=== PATIENT | male | born 1995 | race African-American/Black ===

== ENCOUNTER 2018-10-14 12:35 | Inpatient (IN) | payer OTHER ==
--- NOTE | 2018-10-14 13:10 | ED ---
Psychiatric Complaint - HPI Summary HPI Summary: Pt is a 23 y/o male who presents to the ED c/o SI. He states he was hospitalized in June 2018 for a suicide attempt made by cutting his wrists. Pt was then hospitalized again 10/01/18 in [place] for a manic episode. He was diagnosed with bipolar disorder and was prescribed 500 mg BID Depakote and 15 mg BID Abilify. Pt felt that the doctors were incorrect and he didnt have bipolar disorder, so he didnt take his medications. After speaking with his therapist, he came to terms with his diagnosis and began taking his medications again. Pts therapist warned him of the side effects. At first he had body aches and fatigue, then he went into the worst depression of his life. He now c/ o very intrusive SI. Pt denies any HI. He notes marijuana use for PTSD, but denies any alcohol use. He has a psychiatry appointment in 3 days, but he feels unsafe. Pt is accompanied by his mother. - History Of Current Complaint Chief Complaint: EDMentalHealth Time Seen by Provider: 10/14/18 12:54 Hx Obtained From: Patient, Family/Commissary Assistant - Mother Onset/Duration: Gradual Onset, Lasting Weeks - 2, Still Present Timing: Constant Character: Depressed Aggravating Factor(s): Other - Depakote, Abilify Alleviating Factor(s): Nothing Associated Signs And Symptoms: Positive: Negative Related History: Positive For: Prior Psychiatric Issues - Bipolar disorder Has Suicidal: Reports: Thoughts, Has Prior Attempt(s) Has Homicidal: Denies: Thoughts - Allergies/Home Medications Allergies/Adverse Reactions: Allergies Allergy/AdvReac Type Severity Reaction Status Date / Time No Known Allergies Allergy Verified 10/14/18 12:46 Home Medications: Home Medications Abilify 15 mg PO DAILY 10/14/18 [History Confirmed 10/14/18] Depakote 500 mg PO BID 10/14/18 [History Confirmed 10/14/18] clonazePAM TAB(*) [KlonoPIN TAB(*)] 0.5 mg PO BID PRN 10/14/18 [History Confirmed 10/14/18] PMH/Surg Hx/FS Hx/Imm Hx Endocrine/Hematology History: Denies: Hx Diabetes Cardiovascular History: Denies: Hx Hypertension Psychiatric History: Reports: Hx Post Traumatic Stress Disorder, Hx Bipolar Disorder, Hx Suicide Attempt Infectious Disease History: No Infectious Disease History: Denies: Traveled Outside the [place] in Last 30 Days - Family History Known Family History: Positive: Other - anxiety Negative: Diabetes - Social History Alcohol Use: None Hx Substance Use: Yes Substance Use Type: Reports: Marijuana Hx Tobacco Use: No Smoking Status (MU): Never Smoked Tobacco Review of Systems Positive: Fatigue, Other - body aches. Negative: Fever Positive: Depressed, Other - SI, NEGATIVE: HI All Other Systems Reviewed And Are Negative: Yes Physical Exam - Summary Physical Exam Summary: Appearance: Well appearing, no pain distress Skin: warm, dry, reflects adequate perfusion, old scars on left volar wrist Head/face: normal Eyes: EOMI, ABBY ENT: mucous membranes moist Neck: supple, non-tender Respiratory: CTA, breath sounds present Cardiovascular: RRR, pulses symmetrical Abdomen: non-tender, soft Bowel Sounds: present Musculoskeletal: normal, strength/ROM intact Neuro: normal, sensory motor intact, A&Ox3 Psych: normal affect, SI Triage Information Reviewed: Yes Vital Signs On Initial Exam: Initial Vitals Temp Pulse Resp BP Pulse Ox 98.4 F 101 16 138/90 99 10/14/18 12:41 10/14/18 12:41 10/14/18 12:41 10/14/18 12:41 10/14/18 12:41 Vital Signs Reviewed: Yes Diagnostics - Vital Signs Vital Signs Temp Pulse Resp BP Pulse Ox 10/14/18 12:41 98.4 F 101 16 138/90 99 - Laboratory Result Diagrams: 10/14/18 12:25 10/14/18 12:25 Lab Statement: Any lab studies that have been ordered have been reviewed, and results considered in the medical decision making process. Re-Evaluation - Re-Evaluation First Eval Re-Evaluation Time: 13:30 Change: Unchanged Comment: Pt is medically cleared for a MHE. Second Eval Re-Evaluation Time: 13:43 Change: Worse Comment: Pt now feels anxious and feels like his heart is racing. Course/Dx - Course Course Of Treatment: Nurse's notes reviewed. Patient with history of recent psychiatric hospitalization around [place]. He feels his medications are not working and is feeling very suicidal. He is medically cleared for psychiatric evaluation and is pending disposition after evaluation felt that she should be admitted/transferred. There are no beds available here and so bed search is being performed for transfer. Patient transition to oncoming ER physician. - Differential Dx/Clinical Impression Differential Diagnosis/HQI/PQRI: Positive: Acute Psychosis, Bipolar Disorder, Depression, Suicidal Ideation Provider Diagnosis: Bipolar disorder Discharge - Sign-Out/Discharge Documenting (check all that apply): Patient Departure - Transfer, Sign-Out Patient Signing out patient TO: Samy Cunningham - Discharge Plan Condition: Stable Disposition: TRANS HIGHER LVL OF CARE FAC Referrals: No Primary Care Phys,NOPCP [Primary Care Provider] - - Billing Disposition and Condition Condition: STABLE Disposition: Trans Higher Lvl of Care Fac - Attestation Statements Document Initiated by Scribe: Yes Documenting Scribe: Staci Dawn Provider For Whom Damon is Documenting (Include Credential): Nikhil Crews MD Scribe Attestation: Staci Richardson scribed for Nikhil Crews MD on 10/14/18 at 1847. Scribe Documentation Reviewed: Yes Provider Attestation: The documentation as recorded by the Staci garay accurately reflects the service I personally performed and the decisions made by Nikhil reyes MD Status of Scribe Document: Viewed
[2018-10-14 13:24] LABS: ABS Basophils 0 10^3/ul (0-0.2); ABS Eosinophils 0 10^3/ul (0-0.6); ABS Lymphocytes 1.3 10^3/ul (1.0-4.8); ABS Monocytes 0.3 10^3/ul (0-0.8); ABS Neutrophils 6.7 10^3/ul (1.5-7.7); ABS Nucleated RBC 0 10^3/ul; Eosinophil % 0.4 %; Hematocrit 44 % (42-52); Hemoglobin 14.9 g/dl (14.0-18.0); Lymphocyte % 15.4 %; Mean Corpuscular HGB Conc 34 g/dl (31-36); Mean Corpuscular Hemoglobin 31 pg (27-31); Mean Corpuscular Volume 92 fL (80-94); Mean Platelet Volume 6.8 fL (7.4-10.4); Nucleated Red Blood Cells % 0; Platelet Count 241 10^3/ul (150-450); Red Blood Count 4.74 10^6/ul (4.00-5.40); Red Cell Distribution Width 13 % (10.5-15); White Blood Count 8.4 10^3/ul (3.5-10.8)
[2018-10-14] MEDS ORDERED: LORazepam TAB(*) 1 MG PO ONE ×2 (13:43→23:20)
[2018-10-14 13:48] LABS: ALT 49 U/L (7-52); AST 47 U/L (13-39); Albumin 4.5 g/dL (3.2-5.2); Albumin/Globulin Ratio 1.8 (1-3); Alkaline Phosphatase 84 U/L (34-104); Anion Gap 6 mmol/L (2-11); BUN/Creatinine Ratio 16.7 (8-20); Blood Urea Nitrogen 12 mg/dL (6-24); CO2 Carbon Dioxide 30 mmol/L (22-32); Calcium 9.3 mg/dL (8.6-10.3); Chloride 103 mmol/L (101-111); EGFR African American 166.7 (>60); EGFR Non-African American 137.8 (>60); Globulin 2.5 g/dL (2-4); Glucose 112 mg/dL (70-100); Sodium 139 mmol/L (135-145)
[2018-10-14 14:08] LABS: Acetaminophen < 15 mcg/mL; Alcohol < 10 mg/dL (<10); Salicylate < 2.50 mg/dL (<30)
[2018-10-14 14:22] LABS: TSH (Thyroid Stimulating Horm) 0.44 mcIU/mL (0.34-5.60)
[2018-10-14 14:30] LABS: Urine Appearance Clear; Urine Bilirubin Negative (Negative); Urine Blood Negative (Negative); Urine Color Yellow; Urine Glucose Negative (Negative); Urine Ketones Trace (Negative); Urine Nitrite Negative (Negative); Urine Protein Negative (Negative); Urine Specific Gravity 1.025 (1.010-1.030); Urine Urobilinogen Negative (Negative)
[2018-10-14 14:55] LABS: Barbiturates Urine Screen None Detected (None Detect); Benzodiazepine Urine Screen None Detected (None Detect); Urine Cannabinoids Screen Presumptive Positive (None Detect)
--- NOTE | 2018-10-14 19:42 | ED ---
Progress - Progress Note Progress Note: RECEIVING SIGN-OUT FROM DR. CREWS AT SHIFT CHANGE PENDING MH TRANSFER. - Consult/PCP Time Called: 00:00 Re-Evaluation - Re-Evaluation First Eval Re-Evaluation Time: 00:00 Second Eval Re-Evaluation Time: 00:00 Course/Dx - Course Course Of Treatment: RECEIVING SIGN-OUT FROM DR. CREWS AT SHIFT CHANGE PENDING MH TRANSFER. - Diagnoses Provider Diagnoses: Depression Discharge - Sign-Out/Discharge Documenting (check all that apply): Receiving Sign-Out Receiving patient FROM: Nikhil Crews - pending MH transfer - Discharge Plan Condition: Stable Disposition: TRANS HIGHER LVL OF CARE FAC Referrals: No Primary Care Phys,NOPCP [Primary Care Provider] - - Billing Disposition and Condition Condition: STABLE Disposition: Trans Higher Lvl of Care Fac - Attestation Statements Document Initiated by Scribe: Yes Documenting Scribe: Vania Patel Provider For Whom Scribe is Documenting (Include Credential): Dr. Samy Cunningham MD Scribe Attestation: Vania Richardson scribed for Dr. Samy Cunningham MD on 10/15/18 at 0514. Scribe Documentation Reviewed: Yes Provider Attestation: The documentation as recorded by the Vania garay accurately reflects the service I personally performed and the decisions made by , Dr. Samy Cunningham MD Status of Scribe Document: Viewed
[2018-10-14] MEDS ORDERED: Zolpidem TAB* 10 MG PO ONE (20:14)
[2018-10-15] MEDS ORDERED: Ibuprofen TAB* 400 MG PO ONE (04:08)
[2018-10-15] MEDS ORDERED: Ibuprofen TAB* 400 MG ONE (04:10)
[2018-10-15] MEDS ORDERED: Ibuprofen TAB* 600 MG PO ONE (09:10)
[2018-10-15] MEDS ORDERED: Al Hydrox/Mg Hydrox/Simet LIQ* 30 ML UDC PO PRN (10:18)
--- NOTE | 2018-10-15 10:36 | ED ---
Progress - Progress Note Progress Note: Patient was signed out to Dr. Johny Bah via Dr. Samy Cunningham, pending MH transfer, upon shift change on 10/15/2018 at 0700. - Consult/PCP Time Called: 00:00 Re-Evaluation - Re-Evaluation First Eval Re-Evaluation Time: 00:00 Change: Unchanged Comment: Pt is medically cleared for a MHE. Second Eval Re-Evaluation Time: 00:00 Change: Worse Comment: Pt now feels anxious and feels like his heart is racing. Course/Dx - Course Course Of Treatment: Patient was signed out to Dr. Johny Bah via Dr. Samy Cunningham, pending MH transfer, upon shift change on 10/15/2018 at 0700. - Diagnoses Provider Diagnoses: Mood disorder - Provider Notifications Discussed Care Of Patient With: Anand Whitley Time Discussed With Above Provider: 11:18 Instructed by Provider To: Other - accepts patient for admission. Discharge - Sign-Out/Discharge Documenting (check all that apply): Patient Departure - ADMIT, Sign-Out Patient - EHMKE Signing out patient TO: Anand Whitley Receiving patient FROM: Johny Bah - Discharge Plan Condition: Stable Disposition: [facility]YCHIATRIC FACILITY[place] [place] Referrals: No Primary Care Phys,NOPCP [Primary Care Provider] - - Billing Disposition and Condition Condition: STABLE Disposition: Psychiatric Facility [facility] [place] - Attestation Statements Document Initiated by Scribe: Yes Documenting Scribe: William vEans Provider For Whom Scribe is Documenting (Include Credential): Johny Bah MD Scribe Attestation: I, William Evans scribed for Johny Bah MD on 10/15/18 at 1148. Scribe Documentation Reviewed: Yes Provider Attestation: The documentation as recorded by the William garay accurately reflects the service I personally performed and the decisions made by me, Johny Bah MD Status of Scribe Document: Viewed Attestations Scribe Attestation: William Evans User Type: Provider
--- NOTE | 2018-10-15 10:43 | PN ---
ED Flex Patient Progress Note Date of Service: 10/15/18 Subjective: 23 y.o. male with recent hospitalizations recently for bipolar disorder arrives voluntarily with mother complaining of suicidal depression. Objective: patient clean and well-groomed; depressed with SI Assessment: Bipolar Depression Plan: Admit to adult BSU on voluntary 9 legal status. Continue aripiprazole and Depakote therapies. Vital Signs Temp Pulse Resp BP Pulse Ox 98.5 F 76 18 131/75 100 10/14/18 15:45 10/14/18 15:45 10/14/18 23:37 10/14/18 15:45 10/14/18 15:45 Lab Results - Entire Visit 10/14/18 10/14/18 10/14/18 14:20 14:20 12:25 WBC RBC Hgb Hct MCV MCH MCHC RDW Plt Count MPV Neut % (Auto) Lymph % (Auto) Gillespie % (Auto) Eos % (Auto) Baso % (Auto) Absolute Neuts (auto) Absolute Lymphs (auto) Absolute Monos (auto) Absolute Eos (auto) Absolute Basos (auto) Absolute Nucleated RBC Nucleated RBC % Sodium Potassium Chloride Carbon Dioxide Anion Gap BUN Creatinine Est GFR ( Amer) Est GFR (Non-Af Amer) BUN/Creatinine Ratio Glucose Calcium Total Bilirubin AST ALT Alkaline Phosphatase Total Protein Albumin Globulin Albumin/Globulin Ratio TSH Urine Color Yellow Urine Appearance Clear Urine pH 8.0 Ur Specific Morris 1.025 Urine Protein Negative Urine Ketones Trace A Urine Blood Negative Urine Nitrate Negative Urine Bilirubin Negative Urine Urobilinogen Negative Ur Leukocyte Esterase Negative Urine Glucose Negative Urine Ascorbic Acid * A Salicylates Urine Opiates Screen None detected Acetaminophen Ur Barbiturates Screen None detected Valproic Acid 81.0 Ur Phencyclidine Scrn None detected Ur Amphetamines Screen None detected U Benzodiazepines Scrn None detected Urine Cocaine Screen None detected U Cannabinoids Screen Presumptive positive A Serum Alcohol 10/14/18 10/14/18 12:25 12:25 WBC 8.4 RBC 4.74 Hgb 14.9 Hct 44 MCV 92 MCH 31 MCHC 34 RDW 13 Plt Count 241 MPV 6.8 L Neut % (Auto) 80.0 Lymph % (Auto) 15.4 Gillespie % (Auto) 3.9 Eos % (Auto) 0.4 Baso % (Auto) 0.3 Absolute Neuts (auto) 6.7 Absolute Lymphs (auto) 1.3 Absolute Monos (auto) 0.3 Absolute Eos (auto) 0 Absolute Basos (auto) 0 Absolute Nucleated RBC 0 Nucleated RBC % 0 Sodium 139 Potassium 4.0 Chloride 103 Carbon Dioxide 30 Anion Gap 6 BUN 12 Creatinine 0.72 Est GFR ( Amer) 166.7 Est GFR (Non-Af Amer) 137.8 BUN/Creatinine Ratio 16.7 Glucose 112 H Calcium 9.3 Total Bilirubin 0.70 AST 47 H ALT 49 Alkaline Phosphatase 84 Total Protein 7.0 Albumin 4.5 Globulin 2.5 Albumin/Globulin Ratio 1.8 TSH 0.44 Urine Color Urine Appearance Urine pH Ur Specific Morris Urine Protein Urine Ketones Urine Blood Urine Nitrate Urine Bilirubin Urine Urobilinogen Ur Leukocyte Esterase Urine Glucose Urine Ascorbic Acid Salicylates < 2.50 Urine Opiates Screen Acetaminophen < 15 Ur Barbiturates Screen Valproic Acid Ur Phencyclidine Scrn Ur Amphetamines Screen U Benzodiazepines Scrn Urine Cocaine Screen U Cannabinoids Screen Serum Alcohol < 10
[2018-10-15] MEDS: Divalproex DR TAB(*) 500 MG PO SCH ×2 (12:58→20:30)
[2018-10-15] MEDS: ARIPiprazole TAB* 15 MG PO SCH (12:58)
[2018-10-15] MEDS: hydrOXYzine HCL TAB* 50 MG PO PRN (12:59)
[2018-10-15] MEDS ORDERED: Ibuprofen TAB* 600 MG PO PRN (14:23)
[2018-10-15] MEDS: Acetaminophen TAB* 325 MG PO PRN (20:29)
[2018-10-15] MEDS ORDERED: LORazepam TAB(*) 1 MG PO SCH (21:00)
[2018-10-16] MEDS: hydrOXYzine HCL TAB* 50 MG PO PRN (10:37)
[2018-10-16] MEDS: Divalproex DR TAB(*) 500 MG PO SCH (10:41)
[2018-10-16] MEDS: ARIPiprazole TAB* 15 MG PO SCH (10:41)
--- NOTE | 2018-10-16 11:31 | PN ---
MHU: Group Therapy Note - Service Type Service Type: [id number] Group Psychotherapy - Cognitive Behavioral Group Therapy ( CBT):Patient was attentive and participatory in CBT programming this morning, and remained in good behavioral control. Patient expressed positive insights regarding relevant treatment interventions and goals.
[2018-10-16] MEDS ORDERED: Lithium Carbonate CAP 150 MG ** CAPSULE PO ONE (15:00)
--- NOTE | 2018-10-16 15:04 | HP ---
H&P (Free Text) History and Physical: CC "I have bipolar disorder HPI Justification for admission: For immediate safety due to suicidal ideation. Voluntary Admission 23 year old single male with past history of bipolar I disorder came to the emergency room with his mother with suicidal ideation and feeling that he was becoming manic. He reports that he was hospitalized in June and September. I did not want to be in my skin anymore and thought about cutting my wrist. He thinks his current medications may increase the suicidal thoughts and wants to get his medications right before leaving. He denied homicidal ideation intent or plan. He denied recent acts of violence. He denied auditory and or visual hallucinations. Before his last hospitalization he called 911 and stated that he will help back up the police missions and came to the police department with a bullet proof vest. Bipolar He reported feeling irritable most of the time while having an persistent abundance of energy most of the day without the use of substances. He reported having the decrease need for sleep due to feeling an abundance of energy. He reported having many ideas at once. He said I know I am getting manic I start having a bunch of ideas and do unrealistic things like change a [employer] business plan overnight. MDD He denied feelings of low self-worth , feeling empty inside, with feelings of hopelessness. He denied an abundance of sleep and denied weight loss. He said I am mostly manic and outgoing and not so much depressed. Anxiety He denied having panic attacks. He denied fear of crowds, or phobias. He denied worrying most of the day. PTSD He reports seeing things with a seam closer office in the past and would not elaborate. His Girlfriend had a recently which caused him to be distressed. Psychosis He denied hearing things that other people do not hear or seeing things other people do not see. He denied feeling that the TV is making references. He said that he is trustful of others and feels safe on the unit. The patient denied auditory and/ or visual hallucinations. PAST PSYCHIATRIC HISTORY: History of bipolar I disorder, recent manic episode 1st admission: 2 hospitalizations at [facility] in June 2018 and September 2018 for sanjeev and one suicide attempt by cutting his wrist. History of past suicide/homicide attempts : 1 past suicide attempt by cutting his wrist. He denied past homicidal and or violent incidents. Outpatient follow-up: Therapist in [place] Medications: He was tried on Depakote and Abilify in the past that he reported caused suicidal thoughts. FAMILY HISTORY: - Suicide: Denied family history of suicide. - Mental illness: Sister Major Depressive disorder - Substance abuse: Uncle alcohol abuse SUBSTANCE ABUSE HISTORY: He denied using heroin , cocaine, and or prescription drug abuse. He smoked cannabis daily for the last 2 years for sleep and stopped in September. He denied previous substance abuse treatment. He denied past or present nicotine use. He reported drinking whiskey daily for a year leading up his hospitalization in June. He denied withdrawal, DUIs seizures or blackouts. SOCIAL HISTORY: He is a 23 year old single male lives in [place] with his parents. He grew up in [place]. 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 He was raised by both of his parents and has a high school education. PAST MEDICAL HISTORY: Denied having medical conditions. He denied having sudden in the family. He denied a family history of cardiac disease. Denied diabetes or a family history . Allergies: Denied drug and or food allergies Physical Exam: Please see ED note Mental Status Exam on Admission Appearance: 23 year old male appears stated age. Fair hygiene and grooming. Psychomotor activity: No Psychomotor agitation Eye contact: Fair Posture: Upright Attitude/behavior: cooperative Speech: normal rate and rhythm. Mood: "fine " Affect: constricted Thought process: linear and goal directed Thought content: no delusions or preoccupations Perceptions: He did not appear to be responding to internal stimuli. No visual hallucinations and/ or auditory hallucinations. Suicidal/homicidal targets: Recent suicidal ideation. No recent acts of violence. Denied homicidal ideation, intent or plans. Sensorium/orientation: Awake and alert. Oriented to self, location, and time Insight/judgment: Fair insight and judgment. Diagnosis on Admission : Bipolar I disorder, recent manic episode. Plan # Justification for Admission: For immediate safety due to suicidal ideation. # Voluntary admission. The patient requires inpatient admission at this time to assure safety, receive treatment and work toward stabilization. # Start [place] 300mg QAM and 150mg po QPM. Normal Cr. Plan to increase to 300mg BID tomorrow. Li Level due for . D/C Ibuprofen due to kidney toxicity with lithium. # Start Seroquel 50mg QPM #Ativan 1mg PO BID PRN Admit to BSU, Q15 minute observation. Start regular diet. Encourage participation in activities on the milieu. # To obtain collateral information once release is signed. Patient evaluated in ED and was determined by the emergency room Physician to be medically stable for admission to the BSU. #Goals before discharge to include mood stabilization and decreasing suicidal ideation. The risks, benefits, and alternative treatment options were discussed as well as of the risks of refusing treatment. Treatment associated risks discussed . After this discussion and an acknowledgement of his understanding he made the choice for the current type of treatment despite the risks.
[2018-10-16] MEDS ORDERED: Lithium Carbonate CAP 150 MG ** CAPSULE PO SCH (18:00)
[2018-10-16] MEDS ORDERED: QUEtiapine TAB* 25 MG PO SCH (18:00)
[2018-10-16] MEDS: Acetaminophen TAB* 325 MG PO PRN (21:45)
[2018-10-16] MEDS ORDERED: traZODone TAB* 50 MG TAB ONE (22:42)
[2018-10-16] MEDS ORDERED: traZODone TAB* 50 MG TAB PO ONE (23:00)
[2018-10-16] MEDS: LORazepam TAB(*) 1 MG PO PRN (23:40)
[2018-10-17] MEDS: Acetaminophen TAB* 325 MG PO PRN ×3 (06:30→14:45)
[2018-10-17 07:03] LABS: HDL Cholesterol 54.4 mg/dL
--- NOTE | 2018-10-17 08:07 | PN ---
Subjective - Subjective Date of Service: 10/17/18 Service Type: 13980 Hosp care 25 min moderate complexity Subjective: Nursing Report: Patient was visible on unit , no behavioral issues, slept overnight CC: "I was able to get some sleep Patient was seen and evaluated by typewriter ribbon winder today in the common room. He reported that he received seroquel and was able to sleep after 6 the woke up and received ativan and went back to sleep. Per nursing no behavioral issues. He has been attending group. He did not endorse suicidal ideation intent or plan. He mentioned that the staff has treated him so great here. He denied homicidal ideation intent or plan. He denied auditory and or visual hallucinations. He feels safe on the unit. He reported improved appetite and sleep. He denied side effects from medications. Patient denied chest pain , Shortness of breath. Objective - Appearance Dysmorphic Features: No Hygiene: Normal Grooming: Well Kept - Behavior Psychomotor Activities: Normal Exhibits Abnormal Movement: No - Attitude and Relatedness Attitude and Relatedness: Cooperative Eye Contact: Good - Speech Quality: Unpressured Latencies: Normal Quantity: Appropriate - Mood Patient's Decription of Mood: "Good" - Affect Observed Affect: Non-labile - Thought Process Patient's Thought Process: Coherent Thought Content: No Passive Wish, No Suicidal Planning, No Homicidal Ideation, No Paranoid Ideation - Sensorium Experiencing Hallucinations: No, Sensorium is Clear Type of Hallucinations: Visual: No, Auditory: No, Command: No - Level of Consciousness Level of Consciousness: Alert Orientation: Yes Intact, Yes Orientated to Time, Yes Orientated to Place, Yes Orientated to Person - Impulse Control Impulse Control: Intact - Insight and Judgement Insight and Judgement: Good - Group Participation Particating in Group Activities: Yes - Medication Management Medication Management Adherence: Yes Assessment - Assessment Merits Inpatient Hospitalization: For Immediate Safety Clinical Impression: 23 year old single male with history of Bipolar I disorder with recent manic episode is responding well to current treatment Plan - Plan Treatment Plan: Name: JOSHUA MIDDLETON Birthdate: 1995 [id number] # Justification for Admission: For immediate safety due to suicidal ideation. # Voluntary admission. The patient requires inpatient admission at this time to assure safety, receive treatment and work toward stabilization. # Increase [place] 300mg PO BID Normal Cr 0.72. Li Level due for . # Increase Seroquel to 100mg QPM #Ativan 1mg PO BID PRN Q30 min and Staff pass. Order to allow computer access to check work email. #Goals before discharge to include mood stabilization and decreasing suicidal ideation. Plan to discharge Monday. #Medical Team consulted to manage abnormal EKG and medical issues The risks, benefits, and alternative treatment options were discussed as well as of the risks of refusing treatment. Treatment associated risks discussed . After this discussion and an acknowledgement of his understanding he made the choice for the current type of treatment despite the risks. Continued Medication Management: Start Medication Medications: Current Medications Acetaminophen (Tylenol Tab*) 650 mg PO Q4H PRN PRN Reason: for pain; or Temp >101 F Last Admin: 10/17/18 06:30 Dose: 650 mg Al Hydrox/Mg Hydrox/Simethicone (Maalox Plus*) 30 ml PO Q4H PRN PRN Reason: INDIGESTION Platte Carbonate (Platte Carbonate Tab*) 300 mg PO BID DARRIN Lorazepam (Ativan Tab(*)) 1 mg PO BID PRN PRN Reason: ANXIETY Last Admin: 10/16/18 23:40 Dose: 1 mg Quetiapine Fumarate (Seroquel Tab*) 50 mg PO BEDTIME DARRIN - Discharge Plan Discharge Plan: Inpatient Hospitalization Outpatient Program: Private Clinician(s)
[2018-10-17] MEDS ORDERED: Lithium Carbonate TAB* 300 MG PO SCH (09:00)
--- NOTE | 2018-10-17 11:26 | PN ---
MHU: Group Therapy Note - Service Type Service Type: [id number] Group Psychotherapy - Cognitive Behavioral Group Therapy ( CBT):Patient was attentive and participatory in CBT programming this morning, and remained in good behavioral control. Patient expressed positive insights regarding relevant treatment interventions and goals.
[2018-10-17] MEDS ORDERED: Benzocaine (DENTAL) 10%* TOP.GEL TOPICAL PRN (13:45)
[2018-10-17] MEDS: LORazepam TAB(*) 1 MG PO PRN (16:07)
--- NOTE | 2018-10-17 16:27 | PN ---
MHU: Group Therapy Note - Service Type Service Type: [id number] Group Psychotherapy - Medication Education Group: Patient was attentive and participatory in group, and remained in good behavioral control. Patient expressed positive insights regarding relevant treatment interventions. Patient stated understanding of material discussed and had appropriate questions.
--- NOTE | 2018-10-17 16:38 | DS ---
Subjective - Subjective Service Types: 30808 [facility] Day Mgmt simple under 30 min Discharge Date: 10/17/18 Subjective: Patient will be transferred to the telemetry unit due to abnormal EKG and ST elevation and will return to Psychiatry once testing is completed. He doesnt require a 1:1 during his stay on the telemetry unit. Patient denied chest pain, shortness or breath, but reported history of chest pain. Medical unit came to evaluate patient and suggests that he be transferred for further testing. CC "I have bipolar disorder HPI Justification for admission: For immediate safety due to suicidal ideation. Voluntary Admission 23 year old single male with past history of bipolar I disorder came to the emergency room with his mother with suicidal ideation and feeling that he was becoming manic. He reports that he was hospitalized in June and September. I did not want to be in my skin anymore and thought about cutting my wrist. He thinks his current medications may increase the suicidal thoughts and wants to get his medications right before leaving. He denied homicidal ideation intent or plan. He denied recent acts of violence. He denied auditory and or visual hallucinations. Before his last hospitalization he called 911 and stated that he will help back up the police missions and came to the police department with a bullet proof vest. Bipolar He reported feeling irritable most of the time while having an persistent abundance of energy most of the day without the use of substances. He reported having the decrease need for sleep due to feeling an abundance of energy. He reported having many ideas at once. He said I know I am getting manic I start having a bunch of ideas and do unrealistic things like change a [employer] business plan overnight. MDD He denied feelings of low self-worth , feeling empty inside, with feelings of hopelessness. He denied an abundance of sleep and denied weight loss. He said I am mostly manic and outgoing and not so much depressed. Anxiety He denied having panic attacks. He denied fear of crowds, or phobias. He denied worrying most of the day. PTSD He reports seeing things with a officer lieutenant office in the past and would not elaborate. His Girlfriend had a recently which caused him to be distressed. Psychosis He denied hearing things that other people do not hear or seeing things other people do not see. He denied feeling that the TV is making references. He said that he is trustful of others and feels safe on the unit. The patient denied auditory and/ or visual hallucinations. PAST PSYCHIATRIC HISTORY: History of bipolar I disorder, recent manic episode 1st admission: 2 hospitalizations at [facility] in June 2018 and September 2018 for sanjeev and one suicide attempt by cutting his wrist. History of past suicide/homicide attempts : 1 past suicide attempt by cutting his wrist. He denied past homicidal and or violent incidents. Outpatient follow-up: Therapist in [place] Medications: He was tried on Depakote and Abilify in the past that he reported caused suicidal thoughts. FAMILY HISTORY: - Suicide: Denied family history of suicide. - Mental illness: Sister Major Depressive disorder - Substance abuse: Uncle alcohol abuse SUBSTANCE ABUSE HISTORY: He denied using heroin , cocaine, and or prescription drug abuse. He smoked cannabis daily for the last 2 years for sleep and stopped in September. He denied previous substance abuse treatment. He denied past or present nicotine use. He reported drinking whiskey daily for a year leading up his hospitalization in June. He denied withdrawal, DUIs seizures or blackouts. SOCIAL HISTORY: He is a 23 year old single male lives in [place] with his parents. He grew up in [place]. 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 No history. He was raised by both of his parents and has a high school education. PAST MEDICAL HISTORY: Denied having medical conditions. He denied having sudden in the family. He denied a family history of cardiac disease. Denied diabetes or a family history . Allergies: Denied drug and or food allergies Physical Exam: Please see ED note Mental Status Exam on Admission Appearance: 23 year old male appears stated age. Fair hygiene and grooming. Psychomotor activity: No Psychomotor agitation Eye contact: Fair Posture: Upright Attitude/behavior: cooperative Speech: normal rate and rhythm. Mood: "fine " Affect: constricted Thought process: linear and goal directed Thought content: no delusions or preoccupations Perceptions: He did not appear to be responding to internal stimuli. No visual hallucinations and/ or auditory hallucinations. Suicidal/homicidal targets: Recent suicidal ideation. No recent acts of violence. Denied homicidal ideation, intent or plans. Sensorium/orientation: Awake and alert. Oriented to self, location, and time Insight/judgment: Fair insight and judgment. Diagnosis on Admission : Bipolar I disorder, recent manic episode. Diagnosis on Discharge : Bipolar I disorder, recent manic episode. Condition at the time of discharge: At the time of discharge patient showed improvement of sleep and appetite. The patient was not a danger to self or others. The patient denied suicidal ideations , intent or plans. The patient denied homicidal targets, ideation, intents or plans. This patient participated in psychosocial rehabilitation and gained some insight into problems. The patient gained insight into mental illness, triggers, and treatment. The patient took medication as prescribed. The patient denied side effects of medication and objective signs of side effects were not evident. Therapy Resources were offered to the patient. The patient had ST elevation on EKG and was transferred to the telemetry service at [facility] for further diagnostic testing. Objective - Appearance Appearance: Healthy Appearing Dysmorphic Features: No Hygiene: Normal Grooming: Fairly Well Kept - Behavior Psychomotor Activities: Normal Exhibits Abnormal Movement: No - Attitude and Relatedness Attitude and Relatedness: Cooperative Eye Contact: Fair - Speech Quality: Unpressured Latencies: Normal - Mood Patient's Decription of Mood: "Good" - Affect Observed Affect: Non-labile Affect Consistent with: Euthymia - Thought Process Patient's Thought Process: Goal Directed Thought Content: No Passive Wish, No Suicidal Planning, No Homicidal Ideation, No Paranoid Ideation - Sensorium Experiencing Hallucinations: No, Sensorium is Clear Type of Hallucinations: Visual: No, Auditory: No, Command: No - Level of Consciousness Level of Consciousness: Alert Orientation: Yes Intact, Yes Orientated to Time, Yes Orientated to Place - Impulse Control Impulse Control: Intact - Insight and Judgement Insight and Judgement: Good - Group Participation Particating in Group Activities: Yes - Medication Management Medication Management Adherence: Yes Treatment Course & Assessment Clinical Course & Impression: Hospital course part A: 23 year old single male with history of Bipolar I disorder with recent manic episode is responding well to current treatment will be transferred to telemetry unit at [facility]. Hospital course part B: Treatment course tests, procedures and summary of results. CBC, CMP, UDS, TSH, HBA1c, lipid profile, UA, UDS. EKG with ST elevation and transferred to the telemetry floor. The patient was admitted to the adult behavioral unit and placed on 15 minute check for safety. The patient did well on the unit and went to groups. Interacted with peers had adequate sleep and regular appetite. Tolerated medication changes without side effects. AIMS was performed. Group therapy and services were offered. The risks, benefits, and alternative treatment options were discussed as well as of the risks of refusing treatment. Treatment associated risks discussed . After this discussion and an acknowledgement of this understanding , made the decision for the current type of treatment. The patient was advised of the 24 hour / 7 days a week availability of the emergency room and to call 911 in the event of becoming suicidal and/ or homicidal and for all other emergencies. The patient was informed of the contact information for [facility], [facility], [facility], [facility], Alcoholics Anonymous, and [facility]. Birmingham levels to be performed Patient was started on [place] and titrated up to 300mg PO PO BID. He was given Seroquel 50mg PO QPM and titrated to 100mg PO QPM and was given Ativan 1mg PO BID PRN. Patient transferred to telemetry at [facility] for further testing. . Merits Inpatient Hospitalization: Yes Clear for Discharge: Adequate Clinical Respons Discharge Planning - Discharge Planning Discharge Plan: Inpatient Hospitalization Outpatient Program: Private Clinician(s) Recommendations for Continuing Care: Primary Care Followup Medications: Current Medications Acetaminophen (Tylenol Tab*) 650 mg PO Q4H PRN PRN Reason: for pain; or Temp >101 F Last Admin: 10/17/18 14:45 Dose: 650 mg Al Hydrox/Mg Hydrox/Simethicone (Maalox Plus*) 30 ml PO Q4H PRN PRN Reason: INDIGESTION Benzocaine (Orajel 10%*) 1 applic TOPICAL QID PRN PRN Reason: PAIN Last Admin: 10/17/18 14:47 Dose: 1 applic [place] Carbonate (B[place] Carbonate Tab*) 300 mg PO BID DARRIN Last Admin: 10/17/18 08:32 Dose: 300 mg Lorazepam (Ativan Tab(*)) 1 mg PO BID PRN PRN Reason: ANXIETY Last Admin: 10/17/18 16:07 Dose: 1 mg Quetiapine Fumarate (Seroquel Tab*) 100 mg PO BEDTIME [facility] Discharge Planning: Prescriptions provided for discharge [x] Yes once officially discharged [] No Follow up care details as per social work arrangements. Patient response to discharge plan: [] eager for discharge [x] agreeable with discharge plan [] ambivalent about discharge [] disagrees with discharge today
[2018-10-17 17:56] VITALS: BP 142/73
--- NOTE | 2018-10-17 20:29 | CONS ---
ADDENDUM BY ATTENDING MD INCLUDED ON THIS REPORT CC: Dr. Edmond Leung; Dr. Itzel Contreras * CONSULTATION REPORT: DATE OF CONSULT: 10/17/18 CONSULTING PROVIDER: Edmond Leung MD MY ATTENDING WHILE IN THE HOSPITAL: Itzel Contreras MD * (DICTATED BY LUIS LIU) REASON FOR CONSULTATION: Abnormal EKG. HISTORY OF PRESENT ILLNESS: Mr. Álvarez is a 23-year-old male with a past medical history significant only for bipolar disorder and single episode of syncope approximately 3 to 4 years ago, who is currently admitted as inpatient voluntarily on the behavioral science unit for suicidal ideation. The patient was started on quetiapine and had an EKG to assess for his QT interval. This EKG showed diffuse ST segment elevations concerning for pericarditis. The patient was not having any chest pain at that time, but does have a history of intermittent pleuritic left- sided chest pain, which occasionally radiates to his shoulder and arm. The patient had an episode of syncope 3 to 4 years ago, which was when he was walking at a car dealership. The patient went to the hospital, had some abnormal findings, and was referred to a automotive engineer for event monitor placement, but this was never followed up on. The patient has had these episodes of chest pain on and off for years. The patient does not have any chest pain at that time of his syncope. The patient states that the episode can last up to hours. He has not had 1 recently, but he does occasionally have stabs of sharp pain in his left chest that lasts several seconds. These are not brought on by exertion. He has no other known provoking factors. The patient has no other history of heart disease. The patient takes no other medications at home. The patient was started on lithium and quetiapine on the day before this consultation. The patient's weight has been fluctuating significantly over the last month since he has been admitted on several different locations for management of his psychiatric disorder. The patient denies any palpitations, presyncope, any other recent illnesses, any sick contacts, or any other chronic medical conditions. PAST MEDICAL HISTORY: 1. Bipolar disorder. 2. Syncope. PAST SURGICAL HISTORY: None. MEDICATIONS: Home medications, the patient is listed as taking Depakote, Abilify, and Klonopin at home, though the patient denies taking any home medications during this interview. Currently, medications include: 1. Quetiapine fumarate 100 mg p.o. at bedtime. 2. [place] carbonate 300 mg p.o. b.i.d. 3. Tylenol 325 mg p.o. q.4 hours as needed for pain or temperature. 4. Lorazepam 1 mg p.o. b.i.d. as needed for anxiety. 5. The patient received 1 dose of trazodone last night for insomnia. ALLERGIES: No known drug allergies. FAMILY HISTORY: The patient's father is alive and healthy. The patient's mother has lupus and other associated autoimmune disease. The patient has 4 siblings, all of whom are healthy. Both the patient's grandfathers are , one of an autoimmune disease when his father was 17 and one of colon cancer when his mother was 17. The patient's grandmothers are alive and healthy. The patient is of [place] and descent. SOCIAL HISTORY: The patient smokes cigar occasionally. The patient denies any recent alcohol abuse, though the patient does drink alcohol occasionally. The patient uses cannabis, but denies other illicit drug use. The patient works as a sales account director. The patient is never , never had any kids. The patient's mother who lives with [place] will be his surrogate decision maker. REVIEW OF SYSTEMS: A 14-point review of systems was reviewed with the patient and is negative, except as above in the HPI. PHYSICAL EXAM: General: The patient is a 23-year-old male who appears his stated age, sitting comfortably in bed, in no acute distress. Vital Signs: Most recently obtained, temperature 96.8, pulse rate 80, respiratory rate 16, oxygen saturation 100% on room air, blood pressure 146/99. HEENT: Head: Normocephalic, atraumatic. Sclerae anicteric. No conjunctival injection. Nasal mucosa moist. Oral mucosa moist. No pharyngeal erythema, discharge or exudate. Neck: Supple, nontender. No lymphadenopathy. No carotid bruit auscultated. No JVD. Cardiac: Regular rate and rhythm. No clicks, murmurs, gallops or rubs. Pulses are 2+ in the bilateral dorsalis pedis, posterior tibialis and radial areas. Respiratory: Clear to auscultation bilaterally. No wheezes, rales or rhonchi. Good air exchange bilaterally. Abdomen: Soft, nontender, nondistended. Bowel sounds present and normoactive in all 4 quadrants. No hepatosplenomegaly. No abdominal bruits auscultated. No hepatojugular reflux. Genitourinary: No suprapubic or CVA tenderness. Skin: Clean, dry, and intact. No rash. Neuro: Cranial nerves II through XII intact. No focal deficits. Alert and oriented x3. Psychiatric: Pleasant and cooperative. LABORATORY DATA ON ADMISSION: White blood cell count 8.4, hemoglobin 14.9, platelet count 241. Sodium 139, potassium 4.0, chloride 130, carbon dioxide 30 , anion gap 6, BUN 12, creatinine 0.72, glucose 112, hemoglobin A1c 4.9. Calcium 9.3. Bilirubin 0.7, AST 47, ALT 49, alkaline phosphatase 84. Protein 7.0, albumin 4.5, globulin 2.5. Triglycerides 103, cholesterol 189, LDL cholesterol 114, HDL cholesterol 54.4. TSH 0.44. Urine shows trace ketones, otherwise unremarkable. Toxicology shows negative alcohol, positive cannabinoids. Valproic acid at 81. STUDIES DONE WHILE IN THE HOSPITAL: EKG shows diffuse ST segment elevations, QTc of 491, rate of 86, normal axis, possible left ventricular hypertrophy, incomplete right bundle-branch block, T waves, possible minor RI depressions. ASSESSMENT AND PLAN: Impression: Mr. Álvarez is a 23-year-old male with past medical history significant only for bipolar disorder and remote history of unprovoked syncope who presented to the emergency department with suicidal ideation. He is currently admitted inpatient voluntarily at the [facility] where an EKG incidentally revealed diffuse ST segment elevations consistent with pericarditis. The patient has a history of chest pain and will be admitted to the hospital for echocardiogram and further cardiac testing to rule out worrisome etiology for his EKG. 1. Abnormal EKG. The patient has diffusely elevated ST segments. We will order a troponin, repeat EKG and an echocardiogram. Differential diagnosis for this includes pericarditis, possibly autoimmune, drug induced or viral. We will attempt to obtain medical records from previous hospitalization at [facility]. The differential also includes acute coronary syndrome, this is less likely. The patient has been risk stratified with a lipid profile showing LDL of 114, HDL of 54 and a hemoglobin A1c of 5.4. These should be monitored as the patient is on a atypical antipsychotic regimen. The patient will have an ESR, CRP drawn and CPK, CK-MB and troponin. The patient's TSH is normal. The patient will be monitored on telemetry overnight and then hopefully will be transferred back back to the [facility] if all his testing comes back negative. The patient will have repeat EKG in the morning and now. The patient will also have an LATONIA sent because of his family history of lupus and this chest pain may be a sentinel event for an autoimmune disease. The patient also has findings concerning for hypertrophic obstructive cardiomyopathy given his syncope and possible left ventricular hypertrophy on exam. This will be assessed with an echocardiogram. The patient has no family history of sudden cardiac . 2. Bipolar disorder. Continue the patient's lithium and Seroquel. The patient was voluntarily at [facility] and will hopefully be transferred back pending all negative testing. The patient will have safety monitor while on the floor. 3. DVT prophylaxis. The patient is a low risk. The patient will be encouraged to ambulate frequently. 4. FEN. The patient will have a heart healthy diet without caffeine. The patient does not require fluids. 5. Code status. The patient will be a full code. 6. Disposition. The patient will be transferred to [address] [place] [address]. TIME SPENT: Approximately 60 minutes were spent on this consultation, 30 of which was spent [id number] with the patient obtaining history and physical and discussing treatment plan. This plan has been discussed with my attending, Dr. Itzel Contreras, and she is in agreement. LUIS LIU ADDENDUM: Mr. Álvarez is a 23-year-old male with a past medical history of bipolar disorder who presented to the emergency room with complaints of suicidal ideation and feeling that he was becoming manic. He was started on antipsychotics including Seroquel and he had an EKG performed to monitor his QT interval. The EKG showed right axis deviation with diffuse ST elevation that could suggest acute pericarditis versus early repolarization and his QTC was 391. Due to his abnormal EKG, a hospitalist consultation was requested and the patient does endorse history of episodes of chest pain, although he is chest pain free at this time. He describes a syncopal episode a couple of years ago when he was admitted to [facility] for further workup. I did not have a prior EKG to compare, but considering his EKG changes and prior history, he will be transferred to the telemetry floor for observation overnight. We are going to check serial troponins, ESR, CPK, CK-MB, LATONIA, and an echocardiogram and we will also obtain his records from [facility]. The case was also discussed with Psychiatry. They do not feel that he needs a one- to-one at this time. The patient is here on a voluntary status. He denies suicidal ideation at this time, so he will have just a safety monitor. The case was reviewed and discussed with LUIS Liu and I am in agreement with current management. ARNALDO MCNEAL MD [id number]/CPS #: [id number] Pedro Pablo [id number]/CPS #: [id number] TIM
[2018-10-17] MEDS ORDERED: QUEtiapine TAB* 25 MG PO SCH (21:00)
[2018-10-17] MEDS ORDERED: QUEtiapine TAB* 100 MG PO SCH (21:00)
== END 2018-10-17 18:39 | disposition short-term general hospital (02) | DRG 885 ==
LOC: ED 12:35 → BSU 10-15 10:18 → UNDOADMIN 10-15 10:18 → MEDTELE 10-17 17:53 → BSU 10-17 17:53
PROVIDERS: ADMIT Psychiatry & Neurology Psychiatry; ATTEND Psychiatry & Neurology Psychiatry
DX: F31.9 Bipolar disorder, unspecified (principal); R45.851 Suicidal ideations; R94.31 Abnormal electrocardiogram [ECG] [EKG]; F12.90 Cannabis use, unspecified, uncomplicated; I45.19 Other right bundle-branch block; Z72.0 Tobacco use; Z79.899 Other long term (current) drug therapy; Z83.2 Family history of diseases of the blood and blood-forming organs and certain disorders involving the immune mechanism; Z80.0 Family history of malignant neoplasm of digestive organs; Z81.8 Family history of other mental and behavioral disorders
CPT/HCPCS: 36415; 80053; 80061; 80164; 80307; 80320; 80329; 81003; 83036; 84443; 85025; 90853; 93005; 99222; 99285; A9270-GY; G0480

== ENCOUNTER 2018-10-17 18:12 | Observation (INO) | payer OTHER ==
[2018-10-17] MEDS ORDERED: Ondansetron INJ* 2 MG/ML VIAL IV PRN (18:14)
[2018-10-17] MEDS ORDERED: Al Hydrox/Mg Hydrox/Simet LIQ* 30 ML UDC PO PRN (18:17)
[2018-10-17] MEDS ORDERED: LORazepam TAB(*) 1 MG PO PRN (18:17)
[2018-10-17] MEDS ORDERED: Benzocaine (DENTAL) 7.5%* 10 GM TOP.GEL TOPICAL PRN (18:17)
[2018-10-17 19:15] LABS: C Reactive Protein < 1.00 mg/L (<8.01); Creatine Kinase 1668 U/L (10-223)
[2018-10-17 19:20] LABS: CKMB ng/mL 23.7 ng/mL (0.6-6.3)
--- NOTE | 2018-10-17 19:20 | CONS ---
CONSULTATION REPORT: ADDENDUM: Mr. Álvarez is a 23-year-old male with a past medical history of bipolar disorder who presented to the emergency room with complaints of suicidal ideation and feeling that he was becoming manic. He was started on antipsychotics including Seroquel and he had an EKG performed to monitor his QT interval. The EKG showed right axis deviation with diffuse ST elevation that could suggest acute pericarditis versus early repolarization and his QTC was 391. Due to his abnormal EKG, a hospitalist consultation was requested and the patient does endorse history of episodes of chest pain, although he is chest pain free at this time. He describes a syncopal episode a couple of years ago when he was admitted to [facility] for further workup. I did not have a prior EKG to compare, but considering his EKG changes and prior history, he will be transferred to the telemetry floor for observation overnight. We are going to check serial troponins, ESR, CPK, CK-MB, LATONIA, and an echocardiogram and we will also obtain his records from [facility]. The case was also discussed with Psychiatry. They do not feel that he needs a one- to-one at this time. The patient is here on a voluntary status. He denies suicidal ideation at this time, so he will have just a safety monitor. The case was reviewed and discussed with LUIS Pierson and I am in agreement with current management. [id number]/CPS #: [id number] MTDD
[2018-10-17] MEDS ORDERED: QUEtiapine TAB* 100 MG PO SCH (21:00)
[2018-10-17] MEDS: Lithium Carbonate TAB* 300 MG PO SCH (21:03)
[2018-10-18] MEDS: Acetaminophen TAB* 325 MG PO PRN ×2 (04:00→13:22)
[2018-10-18 07:23] LABS: ABS Basophils 0 10^3/ul (0-0.2); ABS Eosinophils 0.1 10^3/ul (0-0.6); ABS Lymphocytes 1.4 10^3/ul (1.0-4.8); ABS Monocytes 0.4 10^3/ul (0-0.8); ABS Neutrophils 3.9 10^3/ul (1.5-7.7); ABS Nucleated RBC 0 10^3/ul; Eosinophil % 1.4 %; Hematocrit 44 % (42-52); Hemoglobin 15.2 g/dl (14.0-18.0); Lymphocyte % 23.6 %; Mean Corpuscular HGB Conc 35 g/dl (31-36); Mean Corpuscular Hemoglobin 32 pg (27-31); Mean Corpuscular Volume 92 fL (80-94); Mean Platelet Volume 6.9 fL (7.4-10.4); Nucleated Red Blood Cells % 0.1; Platelet Count 186 10^3/ul (150-450); Red Blood Count 4.78 10^6/ul (4.00-5.40); Red Cell Distribution Width 14 % (10.5-15); White Blood Count 5.8 10^3/ul (3.5-10.8)
[2018-10-18 07:39] LABS: Calcium 9.6 mg/dL (8.6-10.3); EGFR African American 159.1 (>60); EGFR Non-African American 131.5 (>60); Magnesium 2.2 mg/dL (1.9-2.7); Potassium 4.2 mmol/L (3.5-5.0)
[2018-10-18 07:48] LABS: Lithium 0.23 mmol/L (0.6-1.2)
[2018-10-18] MEDS: Lithium Carbonate TAB* 300 MG PO SCH (09:31)
--- NOTE | 2018-10-18 11:00 | CONSULT ---
Consult Consult: Patient was seen and evaluated today on the medical floor. He denied suicidal ideation intent or plan. The patient was recently transferred from the [facility] to the telemetry after abnormal EKG findings. The patient reported being ready for discharge. Collateral was obtained from his mother who had questions about diagnosis and treatment indications. She remarked that he has improved and can return home. He denied auditory and or visual hallucinations. The patient denied side effects from medications and feels that he is ready to go home once his doctors say he is can. He looks forward to seeing his mother and working. The patient denied suicidal ideation , intent or plans. The patient denied homicidal targets, ideation, intents or plans. He denied distractibility, having many ideas all at once, irritability. He denied muscle stiffness, fever , nausea, vomiting, sweating. See H& P on 10/16/18 for further history Appearance: 23 year old male appears stated age. Fair hygiene and grooming. Psychomotor activity: No Psychomotor agitation Eye contact: Fair Posture: Upright Attitude/behavior: cooperative Speech: normal rate and rhythm. Mood: "Good " Affect: euthymic Thought process: linear and goal directed Thought content: no delusions or preoccupations Perceptions: He did not appear to be responding to internal stimuli. No visual hallucinations and/ or auditory hallucinations. Suicidal/homicidal targets: Recent suicidal ideation. No recent acts of violence. Denied homicidal ideation, intent or plans. Sensorium/orientation: Awake and alert. Oriented to self, location, and time Insight/judgment: Fair insight and judgment. Diagnosis Bipolar I disorder, currently in remission. Assessment: 23 year old single male with history of Bipolar I disorder started on lithium and seroquel recently transferred to telemetry floor after abnormal ekg findings. Plan: #Can be discharged directly from medical floor once medical teams determines he is clear for discharge #Patient does not require inpatient Psychiatric hospitalization. #Psychiatry will continue to follow the patient while on the medical floor. # Doesn't require 1:1 observation at this time. # Increase Pierpont 450mg PO BID Normal Cr 0.75. Li Level 0.23 sub therapeutic . QTc 394 most recent. #Continue Seroquel to 100mg QPM. # Can discontinue Ativan 1mg PO BID PRN #Recommend routine follow up care with PCP and Margot Collado BEAM SAW OPERATOR on 10/26/18 at 230pm and Therapist Veronica Gonzalez on 10/19/18 300pm. Patient educated about the importance of lithium level and routine follow up and mediation interactions. #Treatment and Recommendations discussed with hospital team. Thank you for consult, contact Psychiatry for any questions. The risks, benefits, and alternative treatment options were discussed as well as of the risks of refusing treatment. Treatment associated risks discussed . After this discussion and an acknowledgement of his understanding he made the choice for the current type of treatment despite the risks. Edmond Leung M.D. #ext [phone] Pager #[phone]
--- NOTE | 2018-10-18 12:51 | ECHO ---
Patient: JOSHUA MIDDLETON [facility] Rec#: [id number] : 1995 Date: 10/18/2018 Age: 23y Height: 185.4 cm / 73.0 in Weight: 88.6 kg / 195.3 lbs Sex: M BSA: 2.1 Room#: 487 Admit Date#: 10/17/2018 Type: Inpatient Referring: Juan Manuel Lowery Reading: Lawrence Montague DO [employer] Consultant: Marilin Gaspar RN RDCS Transthoracic Echocardiogram Indication: Abnormal EKG BP: 130/65 HR: 65 Rhythm: NSR Findings History: Bipolar disorder, single syncopal episode 3-4 years ago Technical Comments: The study quality is fair. Completed at 0910. Left Ventricle: The left ventricular chamber size is normal. There is no left ventricular hypertrophy. Global left ventricular wall motion and contractility are within normal limits. There is normal left ventricular systolic function. The estimated ejection fraction is 55-60%. Normal left ventricular diastolic filling is observed. Left Atrium: The left atrial chamber size is normal. Right Ventricle: The right ventricular chamber size and systolic function are within normal limits. Right Atrium: The right atrial cavity size is normal. Aortic Valve: The aortic valve is trileaflet. The aortic valve leaflets are mildly thickened. There is a trace of aortic regurgitation. There is no evidence of aortic stenosis. Mitral Valve: The mitral valve leaflets are mildly thickened. There is a trace of mitral regurgitation. There is no evidence of mitral stenosis. Tricuspid Valve: The tricuspid valve leaflets are normal. There is trace tricuspid regurgitation. Unable to estimate the right ventricular systolic pressure. There is no tricuspid stenosis. Pulmonic Valve: The pulmonic valve appears normal. There is a trace pulmonic regurgitation. There is no pulmonic stenosis. Pericardium: There is no significant pericardial effusion. Aorta: There is no dilatation of the ascending aorta. There is no dilatation of the aortic arch. There is no dilation of the aortic root. Pulmonary Artery: The main pulmonary artery is not well visualized. Venous: The inferior vena cava appears normal in size. There is a greater than 50% respiratory change in the inferior vena cava dimension. Conclusions The left ventricular chamber size is normal. There is no left ventricular hypertrophy. Global left ventricular wall motion and contractility are within normal limits. There is normal left ventricular systolic function. The estimated ejection fraction is 55-60%. The left atrial chamber size is normal. The right ventricular chamber size and systolic function are within normal limits. No significant valvular abnormalities noted There is no significant pericardial effusion. None prior for comparison at time of interpretation Measurements Name Value Normal Range RVIDd (AP) 2D 2.2 cm (0.9 - 2.6) RVDdMajor (2D) 3.8 cm (2.2 - 4.4) RAd ISD 4CH 4.5 cm (3.4 - 4.9) RA (A4C)W 4.2 cm (2.9 - 4.6) IVSd (2D) 1 cm (0.6 - 1) LVPWd (2D) 0.9 cm (0.6 - 1) LVIDd (2D) 5 cm (3.6 - 5.4) LVIDs (2D) 3.4 cm - LV FS (2D) 32 % (25 - 45) Aortic Annulus 2.1 cm (1.4 - 2.6) Ao root diameter (2D) 2.8 cm (2.1 - 3.5) Ascending Ao 2.5 cm (2.1 - 3.4) Aortic arch 2.3 cm (1.8 - 3.4) LA dimension (AP) 2D 2.7 cm (2.3 - 3.8) LAd ISD 4CH 4.1 cm (2.9 - 5.3) LA ISD 4CH W 3.9 cm (2.5 - 4.5) Name Value Normal Range LA ESV BP (A/L) index 21.9 ml/m2 - Name Value Normal Range MV E-wave Vmax 0.8 m/sec - MV deceleration time 158 msec - MV A-wave Vmax 0.79 m/sec - MV E:A ratio 1 ratio - LV septal e' Vmax 0.08 m/sec - LV lateral e' Vmax 0.12 m/sec - LV E:e' septal ratio 10 ratio - LV E:e' lateral ratio 6.7 ratio - Name Value Normal Range AV Vmax 1.3 m/sec - AV VTI 26 cm - AV peak gradient 6 mmHg - AV mean gradient 4 mmHg - LVOT Vmax 1.1 m/sec - LVOT VTI 20.3 cm - LVOT peak gradient 5 mmHg - LVOT mean gradient 3 mmHg - JESUS Vmax 0.88 m/sec - Name Value Normal Range IVC diameter 1.5 cm - Name Value Normal Range PV Vmax 1 m/sec -
[2018-10-18 15:56] VITALS: BP 132/70
[2018-10-18] MEDS ORDERED: Lithium Carbonate CAP 150 MG ** CAPSULE PO SCH (21:00)
--- NOTE | 2018-10-18 22:02 | DS ---
CC: [facility]; Margot Collado NP * DISCHARGE SUMMARY: DATE OF ADMISSION: 10/17/18 DATE OF DISCHARGE: 10/18/18 PRIMARY CARE PROVIDER: [facility]. PSYCHIATRIST: Margot Collado NP. ATTENDING PHYSICIAN: Dr. Itzel Contreras * (dictated by Dalia Bryan NP). PRIMARY DIAGNOSES: 1. Abnormal electrocardiogram, consistent with baseline. 2. Elevated CPK and CK-MB. SECONDARY DIAGNOSES: 1. Bipolar disorder. 2. History of syncope. STUDIES WHILE IN THE HOSPITAL: 1. EKG on 10/17/18 shows normal sinus rhythm with a rate of 86, QTc 491, diffuse minimal ST segment elevation, possible left ventricular hypertrophy. 2. EKG on 10/18/18 shows normal sinus rhythm with a rate of 70, QTc 394, minimal diffuse ST elevation throughout, consistent with prior EKG. 3. Transthoracic echocardiogram on 10/18/18 reads as the left ventricular chamber size is normal. There is no left ventricular hypertrophy. There is normal left ventricular systolic function. The estimated ejection fraction is 55 % to 60%. The left atrial chamber size is normal. The right ventricular chamber size and systolic function are within normal limits. No significant valvular abnormality is noted. No significant pericardial effusion. No prior study for comparison. HISTORY OF PRESENT ILLNESS AND HOSPITAL COURSE: Mr. Álvarez is a 23-year-old male with past medical history of bipolar disorder and syncope who was admitted to the mental health unit care at [facility] on 10/15/18 for suicidal ideations. The patient had been started on Seroquel and had an EKG to assess his QT interval. The EKG showed diffuse ST segment elevation concerning for pericarditis. The patient had no chest pain though notes that he does have a history of intermittent chest pain, which sounds to be atypical. The last episode was approximately 5 months ago. The patient reports an episode of syncope approximately 3 to 4 years ago, at which point he was referred to a sanitarian aide for placement of an event monitor though he never followed up. Because of his concerning EKG, the patient was admitted to the telemetry floor by the hospitalist service. The patient had an echo with results noted above. He did have 3 negative troponins. He had additional labs because of the concern for pericarditis and was noted to have an ESR of 5 and CRP of less than 1, a CPK of 1668 and a CK-MB of 23. He had a repeat EKG this morning, which was consistent with the prior EKG from yesterday. We did request records from the patient's last visit to a hospital in [place]. The EKG from that visit is difficult to read as it was faxed, though it does appear to be similar to his EKGs here. Lab work was not able to be obtained from that hospital though the patient does note that he has been told in the past that he had a CPK level of greater than 3 times the normal limit and there had been some concern for rhabdomyolysis in the past though he was never diagnosed with rhabdo. Vital signs have been stable while in the floor and the patient has been in normal sinus rhythm. I did speak with the patient about his history of chest pain, and the patient reports that the most recent episode was approximately 5 months ago. The pain sounds atypical as it presented spontaneously and resolved spontaneously, though never lasts for more than 1 hour at a time. The patient is slightly concerned as he had a grandfather with sarcoidosis and his mother has lupus. I will note that we did check an LATONIA, which is pending at this time. I spoke at length with the patient about his EKG abnormalities and the patient reports that he has been told multiple times in the past that he has an abnormal EKG and there have been concerns for OR though he has never been diagnosed with an OR or had any cardiac abnormalities. Because of abnormal EKG and labs seem to be baseline for him, I have advised the patient that he can be discharged today though he should follow up closely to recheck EKG and labs to ensure they are not worsening. He is agreeable to this. I did speak with the psychiatrist following the patient, Dr. Leung, who advised that the patient was stable for discharge from a psych standpoint and did not need to return to the [facility]. He did recommend increasing the patient's Antwerp to 450 mg p.o. b.i.d. and continuing him on the Seroquel 100 mg daily and close followup with his outpatient psychiatrist. Mr. Álvarez is stable for discharge today. Vital signs are as follows: Temp 98.6 , heart rate 97, respiratory rate 18, oxygen saturation 98% on room air, blood pressure 132/70. DISCHARGE MEDICATIONS: New medications: 1. Antwerp 450 mg p.o. b.i.d. 2. Seroquel 100 mg p.o. at bedtime. Discontinued medications: 1. Lorazepam. DISCHARGE PLAN: Mr. Álvarez will be discharged home. Activity will be as tolerated. Diet will be regular as tolerated. Medications are noted above. I have prescribed the patient Antwerp and Seroquel per recommendations from Psychiatry. The patient will need close followup with his psychiatrist and will need his lithium level rechecked to ensure he is therapeutic. He is new to the area and does not have a primary care provider, so he is agreeable to following up with the [facility]. He understands that it is important for close followup to ensure there are no further cardiac concerns. For followup, I would recommend repeating an EKG as well as a CPK and CK-MB. The [facility] can also follow up on the results from the LATONIA. I have advised the patient that if he has any further episodes of chest pain, he should present to the emergency room for further evaluation. He does have an appointment with Margot Collado NP on 10/26/18 at 2:30 and an appointment with Monique Umanzor on 10/25/18 at 11:00. I have advised the patient to return to the emergency room or nearest hospital for any worsening of symptoms, shortness of breath, lightheadedness, dizziness, chest discomfort, high fevers, chills, night sweats, loss of consciousness, or any other worrisome signs or symptoms. This is a summarized report of a complex medical history and hospital stay. For further details, please see the entire medical record. TIME SPENT: Approximately 40 minutes were spent on this discharge. DALIA BRYAN NP [id number]/[facility] #: [id number] TIM
== END 2018-10-18 16:11 | disposition home or self-care (01) ==
LOC: MEDTELE 18:26
PROVIDERS: ADMIT Internal Medicine; ATTEND Internal Medicine
DX: R94.31 Abnormal electrocardiogram [ECG] [EKG] (principal); R74.8 Abnormal levels of other serum enzymes; F31.9 Bipolar disorder, unspecified; R55 Syncope and collapse
CPT/HCPCS: 36415; 80048; 80178; 82550; 82553; 83735; 84484; 85025; 85652; 86038; 86140; 93005; 93306; A9270-GY; G0378

== ENCOUNTER 2019-02-03 23:25 | Emergency (ER) | payer OTHER ==
--- NOTE | 2019-02-03 23:55 | ED ---
Throat Pain/Nasal Congestion - HPI Summary HPI Summary: Patient complains of left side lower dental pain, left ear pain 5 days, getting much worse in the past 24 hours. Denies fever, PHAM, purulent discharge and mouth, cough, sore throat, CP, SOB, N/V/D, abdominal pain, change in urine, change in BM. Medical history is bipolar. - History of Current Complaint Chief Complaint: EDDentalPain Time Seen by Provider: 02/03/19 23:42 Hx Obtained From: Patient Onset/Duration: Gradual Onset, Lasting Days Severity: Severe Associated Signs And Symptoms: Positive: Negative Cough: None - Allergies/Home Medications Allergies/Adverse Reactions: Allergies Allergy/AdvReac Type Severity Reaction Status Date / Time No Known Allergies Allergy Verified 02/03/19 23:34 Home Medications: Home Medications Lurasidone(*) [Latuda] 20 mg PO DAILY 02/03/19 [History Confirmed 02/03/19] Mirtazapine TAB* [Remeron TAB*] 15 mg PO BEDTIME 02/03/19 [History Confirmed ] PMH/Surg Hx/FS Hx/Imm Hx Endocrine/Hematology History: Denies: Hx Diabetes Cardiovascular History: Denies: Hx Hypertension History: Denies: Hx Dialysis Musculoskeletal History: Reports: Hx Tendonitis Comment Only: Other Musculoskeletal History - meniscus repair Sensory History: Denies: Hx Contacts or Glasses - patient reports he has terrible vision, Hx Hearing Aid Opthamlomology History: Denies: Hx Contacts or Glasses - patient reports he has terrible vision EENT History: Denies: Hx Deafness Neurological History: Reports: Hx Migraine Comment Only: Other Neuro Impairments/Disorders - concussions x5; last 3 yrs ago Psychiatric History: Reports: Hx Post Traumatic Stress Disorder, Hx Inpatient Treatment - [facility] (June 2017; Sep 21-2017, Hx [facility] ([place] Hx Bipolar Disorder, Hx Suicide Attempt Denies: Hx Eating Disorder, Hx of Violent Episodes Against Others - Surgical History Surgery Procedure, Year, and Place: L thumb (d/t fracture); L meniscus repair - - both 5+ years ago Infectious Disease History: No Infectious Disease History: Denies: Traveled Outside the [place] in Last 30 Days - Family History Known Family History: Positive: Other - anxiety Negative: Diabetes - Social History Alcohol Use: None Hx Substance Use: Yes Substance Use Type: Reports: Marijuana Substance Use Comment - Amount & Last Used: cannabis Hx Tobacco Use: No Smoking Status (MU): Never Smoked Tobacco Review of Systems Constitutional: Negative Eyes: Negative Positive: Dental Pain Cardiovascular: Negative Respiratory: Negative Gastrointestinal: Negative Genitourinary: Negative Musculoskeletal: Negative Skin: Negative Neurological: Negative Psychological: Normal All Other Systems Reviewed And Are Negative: Yes Physical Exam - Summary Physical Exam Summary: No apical abscess, oral lesions or dental trauma noted. Positive multiple dental caries. ENT exam otherwise unremarkable. Triage Information Reviewed: Yes Vital Signs On Initial Exam: Initial Vitals Temp Pulse Resp BP Pulse Ox 98.6 F 68 16 158/89 98 02/03/19 23:32 02/03/19 23:32 02/03/19 23:32 02/03/19 23:32 02/03/19 23:32 Vital Signs Reviewed: Yes Appearance: Positive: Well-Appearing Skin: Positive: Warm Head/Face: Positive: Normal Head/Face Inspection Eyes: Positive: Normal ENT: Positive: Normal ENT inspection Dental: Positive: Gross Decay/Caries @. Negative: Abscess @ Neck: Positive: Supple Respiratory/Lung Sounds: Positive: Clear to Auscultation Cardiovascular: Positive: Normal Abdomen Description: Positive: Nontender Musculoskeletal: Positive: Normal Neurological: Positive: Normal Psychiatric: Positive: Normal AVPU Assessment: Alert - Antony Coma Scale Best Eye Response: 4 - Spontaneous Best Motor Response: 6 - Obeys Commands Best Verbal Response: 5 - Oriented Coma Scale Total: 15 Diagnostics - Vital Signs Vital Signs Temp Pulse Resp BP Pulse Ox 02/03/19 23:32 98.6 F 68 16 158/89 98 - Laboratory Lab Statement: Any lab studies that have been ordered have been reviewed, and results considered in the medical decision making process. EENT Course/Dx - Course Course Of Treatment: Patient complains of left side lower dental pain, left ear pain 5 days, getting much worse in the past 24 hours. Denies fever, PHAM, purulent discharge and mouth, cough, sore throat, CP, SOB, N/V/D, abdominal pain , change in urine, change in BM. Medical history is bipolar. Physical exam:No apical abscess, oral lesions or dental trauma noted. Positive multiple dental caries. ENT exam otherwise unremarkable. Vital signs within normal limits. Rx for oxycodone. Follow-up with dentist. Patient understands and approves plan. - Diagnoses Provider Diagnoses: Pain, dental Discharge - Sign-Out/Discharge Documenting (check all that apply): Patient Departure Patient Received Moderate/Deep Sedation with Procedure: No - Discharge Plan Condition: Stable Disposition: HOME Prescriptions: Oxycodone HCl 5 mg PO TID 2 Days #6 tablet MDD 3 tabs Patient Education Materials: Toothache (ED) Referrals: No Primary Care Phys,NOPCP [Primary Care Provider] - Additional Instructions: Follow-up with your dentist. Return to the ED for any new or worsening symptoms. - Billing Disposition and Condition Condition: STABLE Disposition: Home
[2019-02-04 00:41] VITALS: BP 151/81
== END 2019-02-04 00:35 | disposition home or self-care (01) ==
LOC: ED 23:25
DX: K08.89 Other specified disorders of teeth and supporting structures (principal)
CPT/HCPCS: 99282

== ENCOUNTER 2019-03-04 16:53 | Emergency (ER) | payer OTHER ==
[2019-03-04 17:08] VITALS: BP 121/70
--- NOTE | 2019-03-04 17:25 | UC ---
"Dental HPI - HPI Summary HPI Summary: Patient presents to urgent care with his mother. Patient with left lower dental pain. Patient states he had irritation of the stomach cavity present 1 month ago. Patient states he went emergency department for which he was prescribed oxycodone that helped. Patient states he missed his dental appointment and has not schedule follow-up. Patient states for 3 days he's had progressive pain in the same area. Patient states the pain radiates towards his left ear and across his left front teeth. No drooling. No open wounds. Patient's been taking Tylenol with little improvement. Patient is on the waiting list to get his dentist at [facility]. Patient does not have a primary care provider. Patient cannot take ibuprofen as he is on lithium. No drooling. No difficulty swallowing. No facial swelling. No trauma. Patient's medications reviewed this visit. - History of Current Complaint Chief Complaint: UCDentalProblem Stated Complaint: DENTAL COMPLAINT Time Seen by Provider: 03/04/19 17:11 Hx Obtained From: Patient, Family/Materials Analyst, Medical Records, Other: - istop Pain Intensity: 8 - Allergies/Home Medications Allergies/Adverse Reactions: Allergies Allergy/AdvReac Type Severity Reaction Status Date / Time bee venom protein (honey bee) Allergy Swelling Verified 03/04/19 17:08 Of Face,Lips,& Throat Home Medications: Home Medications Acetaminophen [Non-Aspirin Extra Strengt] 1,000 mg PO ONCE PRN 03/04/19 [ History Confirmed 03/04/19] cloNIDine HCl [Kapvay] 0.1 mg PO QPM 03/04/19 [History Confirmed 03/04/19] lamoTRIgine [Lamictal] 25 mg PO QAM 03/04/19 [History Confirmed 03/04/19] PMH/Surg Hx/FS Hx/Imm Hx Previously Healthy: Yes Psychological History: Bipolar Disorder - Surgical History Surgical History: Yes Surgery Procedure, Year, and Place: L thumb (d/t fracture); L meniscus repair - - both 5+ years ago - Family History Known Family History: Positive: Other - anxiety, Non-Contributory Negative: Diabetes - Social History Occupation: Employed Full-time Lives: With Family Alcohol Use: Occasionally Substance Use Type: Marijuana Substance Use Comment - Amount & Last Used: cannabis Smoking Status (MU): Never Smoked Tobacco - Immunization History Most Recent Influenza Vaccination: unknown Most Recent Pneumonia Vaccination: unknown Review of Systems All Other Systems Reviewed And Are Negative: Yes Constitutional: Positive: Negative Skin: Positive: Negative Eyes: Positive: Negative ENT: Positive: Dental Pain Respiratory: Positive: Negative Physical Exam - Summary Physical Exam Summary: Vital Signs Reviewed: Yes A+Ox3, no distress Eyes: Conjunctiva Clear, ABBY, EOM intact and full. ENT: Hearing grossly normal, TM x2 clear no fluid, no erythema turbinates wnl mmmoist dental: PT with large cavity #18 tooth + TTP mild erythema at buccal gumline No drainage no bleedin, no odor No TMJ pain no loose teeth, no lesions neck: supple, no LA Respiratory: Positive: No respiratory distress, No accessory muscle use Cardiovascular: skin color reflect adequate perfusion Musculoskeletal Exam: VARELA x 4 without difficulty Neurological: Positive: Alert, ambulatory without difficulty Psychological: Positive: Normal Response To Family Skin: Positive: no rash, no ecchymosis Triage Information Reviewed: Yes Vital Signs: Initial Vital Signs Temp 99.2 F 03/04/19 17:05 Pulse 69 03/04/19 17:05 Resp 18 03/04/19 17:05 BP 121/70 03/04/19 17:05 Pulse Ox 100 03/04/19 17:05 Dental Complaint Course/Dx - Course Course Of Treatment: Baylee Romero | Reference #: [id number] Patient presents with dental pain #18 tooth. Patient with a large cavity. Visit the progressive for the last 3-4 days. Patient states pain wheezes left years long his left anterior jaw. On exam vital signs are stable. Patient does have focal tenderness and large cavity in this tooth. No loose tooth. No intraoral edema. Discussed with patient and mom at length. Recommend antibiotics, Peridex rinse. Patient cannot take ibuprofen but is taking Tylenol. Recommended some viscous lidocaine. Patient given referral to physician referral Center as well as dental. Encouraged going to emergency department if symptoms change or worsen. Comfortable in agreement with plan. Patient did request narcotics. Explained patient would not be prescribing narcotics at this encounter. - Differential Dx/Diagnosis Provider Diagnosis: Pain, dental Discharge - Sign-Out/Discharge Documenting (check all that apply): Patient Departure All imaging exams completed and their final reports reviewed: No Studies - Discharge Plan Condition: Stable Disposition: HOME Prescriptions: Amoxicillin/Clavulanate TAB* [Augmentin TAB 875*] 875 mg PO BID #20 tab Chlorhexidine MW 0.12% 473ML* [Peridex Mouth Wash 0.12%*] 15 ml SWISH SPIT TID # 1 btl Lidocaine 2% VISCOUS* 10 ml TOPICAL TID PRN #1 btl PRN Reason: dental pain Referrals: [facility] [Outside] No Primary Care Phys,NOPCP [Primary Care Provider] - Additional Instructions: - Take antibiotics as prescribed until gone - swish and spit wit Peridex rinse 3 times a day for 5 days - Okay to take Tylenol every 6 hours for pain - Okay to apply numbing medication with a Q tip to the affected tooth as prescribed for pain - Contact the physician referral center for assistance establishing with a primary care provider - You have been given a list of dental offices -okay to contact for a follow-up appointment It is recommended if you have facial swelling, fever, or other concerns you seek treatment at the emergency department - Billing Disposition and Condition Condition: STABLE Disposition: Home"
== END 2019-03-04 17:55 | disposition home or self-care (01) ==
LOC: UCEAST 16:53
DX: K02.9 Dental caries, unspecified (principal); F31.9 Bipolar disorder, unspecified
CPT/HCPCS: 99212; G0463

== ENCOUNTER 2019-03-31 12:06 | Emergency (ER) | payer OTHER ==
[2019-03-31 12:18] VITALS: BP 124/70
--- NOTE | 2019-03-31 12:35 | UC ---
Respiratory Complaint HPI - HPI Summary HPI Summary: Mr. Álvarez is had about a week of coughing. Started with head congestion and then settled into his chest. He has a bit of a sore throat now that he attributes to the coughing. - History of Current Complaint Chief Complaint: UCGeneralIllness Stated Complaint: CHEST CONGESTION Time Seen by Provider: 03/31/19 12:22 Hx Obtained From: Patient Onset/Duration: Gradual Onset Timing: Constant Severity Initially: Moderate Severity Currently: Moderate Pain Intensity: 4 Character: Cough: Productive Alleviating Factors: Bronchodilator - He tried his mother's inhaler which helped a little. Associated Signs And Symptoms: Positive: Wheezing, Nasal Congestion. Negative: Fever - Allergies/Home Medications Allergies/Adverse Reactions: Allergies Allergy/AdvReac Type Severity Reaction Status Date / Time bee venom protein (honey bee) Allergy Swelling Verified 03/31/19 12:13 Of Face,Lips,& Throat Home Medications: Home Medications [place] Carbonate CAP 600 mg PO BID 03/31/19 [History Confirmed 03/31/19] Zolpidem Tartrate [Ambien] 10 mg PO BEDTIME 03/31/19 [History Confirmed 03/31/19 ] PMH/Surg Hx/FS Hx/Imm Hx Previously Healthy: Yes - Surgical History Surgical History: Yes Surgery Procedure, Year, and Place: L thumb (d/t fracture); L meniscus repair - - both 5+ years ago - Family History Known Family History: Positive: Other - anxiety, Non-Contributory Negative: Diabetes - Social History Alcohol Use: None Substance Use Type: Marijuana Substance Use Comment - Amount & Last Used: cannabis every other day Smoking Status (MU): Never Smoked Tobacco - Immunization History Most Recent Influenza Vaccination: unknown Most Recent Pneumonia Vaccination: unknown Review of Systems All Other Systems Reviewed And Are Negative: Yes Constitutional: Positive: Negative. Negative: Fever Skin: Positive: Negative ENT: Positive: Nasal Discharge Respiratory: Positive: Cough Physical Exam - Summary Physical Exam Summary: He is nontoxic in appearance with stable vital signs. Triage Information Reviewed: Yes Appearance: Well-Appearing Vital Signs: Initial Vital Signs Temp 98.7 F 03/31/19 12:15 Pulse 71 03/31/19 12:15 Resp 20 03/31/19 12:15 BP 124/70 03/31/19 12:15 Pulse Ox 99 03/31/19 12:15 Vital Signs Reviewed: Yes Eyes: Positive: Conjunctiva Clear ENT: Positive: Normal ENT inspection Neck exam: Normal Neck: Positive: No Lymphadenopathy Respiratory: Positive: No respiratory distress, No accessory muscle use, Wheezing - Mild expiratory wheezes.. Negative: Respiratory distress, Decreased breath sounds, Accessory muscle use Cardiovascular Exam: Normal Abdominal Exam: Normal Respiratory Course/Dx - Course Course Of Treatment: This sounds like a viral infection that has settled into his chest as bronchitis causing some bronchospasm although it may be the beginning of a secondary bacterial infection. I'm going to treat him with a Z-Dakota and inhaler. - Differential Dx/Diagnosis Provider Diagnosis: Bronchospasm with bronchitis, acute Discharge - Sign-Out/Discharge Documenting (check all that apply): Patient Departure All imaging exams completed and their final reports reviewed: No Studies - Discharge Plan Condition: Stable Disposition: HOME Patient Education Materials: Acute Bronchitis (ED), How to Use a Nebulizer (ED) Referrals: No Primary Care Phys,NOPCP [Primary Care Provider] - [facility] [Outside] Additional Instructions: Follow-up if not improving or if worsening. - Billing Disposition and Condition Condition: STABLE Disposition: Home
== END 2019-03-31 12:50 | disposition home or self-care (01) ==
LOC: UCEAST 12:06
DX: J02.9 Acute pharyngitis, unspecified (principal)
CPT/HCPCS: 99212; G0463

== ENCOUNTER 2019-07-20 02:24 | Emergency (ER) | payer SELFPAY ==
[2019-07-20 03:43] VITALS: BP 131/82
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
== END 2019-07-20 03:41 | disposition home or self-care (01) ==
LOC: ED 02:24
DX: S53.402A Unspecified sprain of left elbow, initial encounter (principal); Y09 Assault by unspecified means; Y92.511 Restaurant or cafe as the place of occurrence of the external cause; Y99.0 Civilian activity done for income or pay
CPT/HCPCS: 99281

== ENCOUNTER 2019-08-26 20:13 | Emergency (ER) | payer OTHER ==
[2019-08-26 20:31] VITALS: BP 144/73
[2019-08-26] MEDS ORDERED: Amoxicillin PO (*) 500 MG CAP PO ONE ×2 (20:39)
--- NOTE | 2019-08-26 20:42 | UC ---
Dental HPI - HPI Summary HPI Summary: 24-year-old male comes in with a chief complaint of right lower molar dental pain and gingival cheek swelling. No fevers or chills. Patient's been having problems with this tooth for a while and has had infections in this area before. No complaint of any difficulty swallowing. - History of Current Complaint Chief Complaint: UCDentalProblem Stated Complaint: DENTAL COMPLAINT Time Seen by Provider: 08/26/19 20:35 Pain Intensity: 4 - Allergies/Home Medications Allergies/Adverse Reactions: Allergies Allergy/AdvReac Type Severity Reaction Status Date / Time bee venom protein (honey bee) Allergy Swelling Verified 08/26/19 20:32 Of Face,Lips,& Throat PMH/Surg Hx/FS Hx/Imm Hx Previously Healthy: Yes - Surgical History Surgical History: Yes Surgery Procedure, Year, and Place: L thumb (d/t fracture); L meniscus repair - - both 5+ years ago - Family History Known Family History: Positive: Other - anxiety, Non-Contributory Negative: Diabetes - Social History Alcohol Use: Weekly Substance Use Type: None Substance Use Comment - Amount & Last Used: cannabis every other day Smoking Status (MU): Never Smoked Tobacco - Immunization History Most Recent Influenza Vaccination: unknown Most Recent Pneumonia Vaccination: unknown Review of Systems All Other Systems Reviewed And Are Negative: Yes Constitutional: Positive: Negative Skin: Positive: Negative Eyes: Positive: Negative ENT: Positive: Dental Pain, Other - SEE HPI Respiratory: Positive: Negative Cardiovascular: Positive: Negative Gastrointestinal: Positive: Negative Motor: Positive: Negative Neurovascular: Positive: Negative Musculoskeletal: Positive: Negative Neurological: Positive: Negative Psychological: Positive: Negative Is Patient Immunocompromised?: No Physical Exam Triage Information Reviewed: Yes Appearance: Well-Appearing, No Pain Distress, Well-Nourished Vital Signs: Initial Vital Signs Temp 98.7 F 08/26/19 20:26 Pulse 76 08/26/19 20:26 Resp 16 08/26/19 20:26 BP 144/73 08/26/19 20:26 Pulse Ox 99 08/26/19 20:26 Vital Signs Reviewed: Yes Eye Exam: Normal Eyes: Positive: Conjunctiva Clear ENT: Positive: Pharynx normal Dental: Positive: Other: - Dental caries right lower molar with gingival swelling and swelling into the right cheek. Neck: Positive: Supple Respiratory: Positive: No respiratory distress Musculoskeletal: Positive: Strength Intact, ROM Intact Neurological: Positive: Alert, Muscle Tone Normal Psychological: Positive: Age Appropriate Behavior Skin Exam: Normal Dental Complaint Course/Dx - Differential Dx/Diagnosis Provider Diagnosis: Dental abscess Discharge ED - Sign-Out/Discharge Documenting (check all that apply): Patient Departure All imaging exams completed and their final reports reviewed: No Studies - Discharge Plan Condition: Stable Disposition: HOME Prescriptions: Amoxicillin PO (*) [Amoxicillin 500 MG CAP*] 500 mg PO TID #30 cap Patient Education Materials: Dental Abscess (ED) Referrals: [facility] [place] [facility] [Outside] Additional Instructions: FOLLOW UP WITH YOUR DENTIST. GET REEVALUATED SOONER IF NOT IMPROVED OR WORSE OR ANY QUESTIONS OR CONCERNS. - Billing Disposition and Condition Condition: STABLE Disposition: Home
== END 2019-08-26 20:50 | disposition home or self-care (01) ==
LOC: UCEAST 20:13
DX: K04.7 Periapical abscess without sinus (principal); Z91.040 Latex allergy status
CPT/HCPCS: 99212; A9270-GY; G0463

== ENCOUNTER 2019-08-28 18:48 | Emergency (ER) | payer OTHER ==
[2019-08-28] MEDS ORDERED: Clindamycin 600 MG/D5W BAG(*) 600 MG/50 ML BAG IV ONE (21:42)
[2019-08-28] MEDS ORDERED: Lidocaine 2% EPI 1:200000 MPF* 10 ML VIAL INJ ONE (21:42)
[2019-08-28] MEDS ORDERED: Benzocaine/Butamben/Tetracain* SPRAY TOPICAL ONE (21:42)
[2019-08-28] MEDS ORDERED: Ketorolac INJ* 30 MG/ML 1 ML VIAL IV PUSH ONE (21:58)
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
[2019-08-28 21:59] LABS: ABS Basophils 0.1 10^3/ul (0-0.2); ABS Eosinophils 0.1 10^3/ul (0-0.6); ABS Lymphocytes 1.4 10^3/ul (1.0-4.8); ABS Monocytes 0.6 10^3/ul (0-0.8); Eosinophil % 0.7 %; Hematocrit 42 % (42-52); Hemoglobin 14.7 g/dL (14.0-18.0); Lymphocyte % 12.5 %; Mean Corpuscular HGB Conc 35 g/dL (31-36); Mean Corpuscular Hemoglobin 32 pg (27-31); Mean Corpuscular Volume 90 fL (80-94); Mean Platelet Volume 6.8 fL (7.4-10.4); Nucleated Red Blood Cells % 0.1; Platelet Count 267 10^3/uL (150-450); Red Cell Distribution Width 13 % (10-15); White Blood Count 11.1 10^3/uL (3.5-10.8)
[2019-08-28 22:16] LABS: Albumin 4.6 g/dL (3.2-5.2); Albumin/Globulin Ratio 1.5 (1-3); BUN/Creatinine Ratio 19.2 (8-20); C Reactive Protein 43.76 mg/L (<8.01); Calcium 9.7 mg/dL (8.6-10.3); EGFR African American 162.6 (>60); EGFR Non-African American 134.4 (>60); Globulin 3.1 g/dL (2-4); Potassium 3.9 mmol/L (3.5-5.0); Total Bilirubin 0.8 mg/dL (0.2-1.0); Total Protein 7.7 g/dL (6.4-8.9)
[2019-08-28] MEDS ORDERED: Lidocaine 1% w EPI 1:200,000* SDV 30 ML VIAL INJ ONE (23:00)
[2019-08-28] MEDS ORDERED: oxyCODONE/Acetamin 5/325 MG* TAB PO ONE ×2 (23:13→23:44)
[2019-08-28] MEDS ORDERED: Morphine 4 MG/ML VIAL (1 ml) 4 MG/ML VIAL IV ONE (23:16)
[2019-08-29 00:12] VITALS: BP 163/83
== END 2019-08-29 00:05 | disposition home or self-care (01) ==
LOC: ED 18:48
DX: K04.7 Periapical abscess without sinus (principal); K08.89 Other specified disorders of teeth and supporting structures
CPT/HCPCS: 36415; 41800; 80053; 83605; 85025; 86140; 87070; 87205; 96365; 96375; 99284; A9270-GY; J1885; J2001; J2270

== ENCOUNTER 2019-12-27 16:40 | Inpatient (IN) | payer OTHER ==
[2019-12-27] MEDS ORDERED: Al Hydrox/Mg Hydrox/Simet LIQ* 30 ML UDC PO PRN (17:15)
[2019-12-27] MEDS ORDERED: Diazepam TAB(*) 10 MG PO PRN (17:18)
[2019-12-27] MEDS ORDERED: Mirtazapine TAB* 15 MG PO PRN (17:20)
--- NOTE | 2019-12-27 19:12 | PROCNOTE ---
- Assessment for Patient Restraint Face to Face Encounter Date: 12/27/19 Face to Face Encounter Time: 18:35 Evaluation of the Patient's Immediate Situation: Pt is standing in room unsteady on his feet with several psychiatry staff members around him holding him up. He does not seem that he is in touch with reality. Patient's Reaction to Intervention: Pt being walked to locked seclusion. Unstable on his feet, pulling off his gown. Not responding to questions. I do not perform an exam as pt at high likelihood to become aggressive. Patient's Medication and Behavioral Condition: Pt unstable. Going into locked seclusion. Evaluate Need for Continued Restraint: Continue
[2019-12-27] MEDS ORDERED: Ondansetron ODT TAB* 4 MG PO PRN (19:13)
[2019-12-27] MEDS ORDERED: Lithium Carbonate TAB* 300 MG PO SCH (21:00)
--- NOTE | 2019-12-27 23:27 | PROCNOTE ---
- Assessment for Patient Restraint Face to Face Encounter Date: 12/27/19 Face to Face Encounter Time: 11:10 Evaluation of the Patient's Immediate Situation: Was called because patient was aggressive again. Patient's Reaction to Intervention: Patient was pacing in the room. Stated he was fine. Holding his urinal full of urine. Patient's Medication and Behavioral Condition: Stable but tenuous Evaluate Need for Continued Restraint: Continue
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
[2019-12-28] MEDS: Lithium Carbonate TAB* 300 MG PO SCH ×2 (09:00→22:07)
--- NOTE | 2019-12-28 10:39 | PROCNOTE ---
- Assessment for Patient Restraint Face to Face Encounter Date: 12/28/19 Face to Face Encounter Time: 10:00 Evaluation of the Patient's Immediate Situation: Patient attempting to charge out of seclusion room after staff and security and became combative the patient was given lithium and Valium and spit it out, he was in no acute medical distress and did not have injury. Patient's Reaction to Intervention: Patient was not able to follow re-direction and began to become physically aggressive with security and staff. He was offered medications and the chance to be let out of the seclusion room and then became aggressive and physically combative. , making manual hold the means with least restriction to preserve the safety of others and himself Manual hold was initiated at 1000am - 1002am Patient's Medication and Behavioral Condition: Patient was offered Valium 10mg and lithium 600mg and spit them out Evaluate Need for Continued Restraint: Terminate
[2019-12-28] MEDS ORDERED: Lithium Carbonate TAB* 300 MG PO ONE (11:00)
--- NOTE | 2019-12-28 11:02 | PROCNOTE ---
- Assessment for Patient Restraint Face to Face Encounter Date: 12/28/19 Face to Face Encounter Time: 09:45 Evaluation of the Patient's Immediate Situation: Patient was in locked seclusion after he was causing a danger to others and himself by running into the doors kicking the doors open and becoming physically assaultive towards security and staff. Lock seclusion started at 924am and ended at 956am. Patient was evaluated by this MD within a half an hour of the start of locked seclusion. Given the patients medical history this was the means of least restriction to preserve the safety of the patient and himself. Patient's Reaction to Intervention: Patient was not in any acute medical distress and did not show any signs of physical injury Patient's Medication and Behavioral Condition: Patient was offered po Valium and lithium and spit it out Evaluate Need for Continued Restraint: Terminate
--- NOTE | 2019-12-28 11:10 | PROCNOTE ---
- Assessment for Patient Restraint Face to Face Encounter Date: 12/28/19 Face to Face Encounter Time: 09:45 Evaluation of the Patient's Immediate Situation: Patient was placed in manual hold from 920am-and ended at 924am this was initiated by security after he was causing a danger to others and himself by running into the doors kicking open doors open and becoming physically assaultive towards security and staff. Patient was evaluated by this MD within a half an hour of the start of the manual hold. This was the means of least restriction to preserve the safety of the patient and himself. Patient's Reaction to Intervention: Patient was angry that he was placed in manual hold Patient's Medication and Behavioral Condition: Patient was offered po lithium and valium and spit it out Patient was evaluated and not in any acute physical distress and was able to breath freely and unrestricted, no signs of injury were present Evaluate Need for Continued Restraint: Terminate
--- NOTE | 2019-12-28 11:15 | PROCNOTE ---
- Assessment for Patient Restraint Face to Face Encounter Date: 12/28/19 Face to Face Encounter Time: 10:05 Evaluation of the Patient's Immediate Situation: Patient was placed in locked seclusion after he was causing a danger to others and himself by charging towards staff and became aggressive and combative with security. Lock seclusion started at 1003am. The patient was evaluated by this MD within a half an hour of the start of locked seclusion. Given the patients medical history this was the means of least restriction to preserve the safety of the patient and others. Patient's Reaction to Intervention: Patient was offered po lithium and valium and spit it out Patient was evaluated and not in any acute physical distress and was able to breath freely and unrestricted, no signs of injury were present Patient's Medication and Behavioral Condition: Patient is upset spitting on the window Evaluate Need for Continued Restraint: Continue
--- NOTE | 2019-12-28 11:20 | PN ---
Subjective - Subjective Date of Service: 12/28/19 Service Type: [id number] Hosp care 35 min high complexity Subjective: CC "Are you a Husker Operator? The patient was placed in locked seclusion after multiple behavioral incidents. He was recently transferred from the ICU to the BSU and since that time has become aggressive toward staff and security. The patient is refusing to have labs drawn. The patient was offered po valium and zyprexa and spit it out. Patient stated he would not hurt anyone or himself if he was let out of seclusion room and when the door opened he charged toward security and staff and a manual hold was initiated. Patient refusing labs, vital signs, ekg. Objective - General Observations Appearance: Disheveled Appears Stated Age: Yes Stature: WNL Posture: Tense Eye Contact: Intense Behavior/Activity: Accelerated, Peculiar, Impulsive, Agitated - Interaction Observations Attitude Towards Examiner: Uncooperative, Demanding, Mistrustful Stated Mood: Elevated Affect: Labile, Restricted Speech Pattern/Tone: Loud Volume Thought Process: Disorganized Perception: Derealization Thought Content: Paranoid Thought Process: Lethality: Homicidal Ideation, Paranoid Ideation Hallucination Type: Denies Delusion Type: Persecution - Cognitive Function Orientation: A&O x 4 Level of Consciousness: Awake Judgment Within Normal Limits: No Ability to Make Reasonable Decisions: Serverely Impaired - Medication Compliance Cooperative with Inpatient Medication Regimen: No - Group Participation Participates in Group Activities: No Assessment - Assessment Merits Inpatient Hospitalization: For Immediate Safety Clinical Impression: 24 year old Male with a history of Bipolar Disorder with current manic episode presented to the emergency department by police after showing up to police station with body armor and [place] Pugh and was admitted to the BSU at [facility]. Plan - Plan Treatment Plan: Name: JOSHUA MIDDLETON Birthdate: 1995 [id number] Plan # Patient was determined to be medically fit by ICU staff to be transferred to the BSU yesterday #Constant 1 to1 observation # Patient has persistent behavior that presents a danger to himself and others and has not been managed by upper dosing limits of multiple classes of medications such as anti psychotics, benzodiazepines, sedative anti- depressants and beta blockers. Patient recently experienced adverse side effect from anti-psychotic medication that prevents additional anti-psychotic to be administered at this time. # The only effective treatment options have been conscious sedation with Ketamine and Dexmedetomidine # Continue [place] 600mg BID # Continue valium 10mg TID PRN. # Staff informed to hold po medications and do not wake if he is sleeping # Remeron 15mg qhs for sleep and akathisia treatment # Court ruled in favor of retention and treatment over objection # Restrict phone access to contact his family once per shift # Consider On track program once stabilized # Patients family was contacted and provided with a update today # Alternative treatment to include options to include intubation period in order to assure the patient can no longer present a danger to himself or others , receive restorative rest, safely monitor labs, vital signs, and receive psychiatric medications. # Behavioral interventions to include ketamine IM or locked seclusion. Continued Medication Management: Continue Outpt Medication Medications: Current Medications Acetaminophen (Tylenol Tab*) 650 mg PO Q4H PRN PRN Reason: for pain; or Temp >101 F Al Hydrox/Mg Hydrox/Simethicone (Maalox Plus*) 30 ml PO Q4H PRN PRN Reason: INDIGESTION Diazepam (Valium Tab(*)) 10 mg PO Q8H PRN PRN Reason: AGITATION [place] Carbonate ([place] Carbonate Tab*) 300 mg PO BID DARRIN Last Admin: 12/28/19 09:00 Dose: Not Given Mirtazapine (Remeron Tab*) 15 mg PO BEDTIME PRN PRN Reason: SLEEP Ondansetron HCl (Zofran Odt Tab*) 4 mg PO Q6H PRN PRN Reason: NAUSEA - Discharge Plan Discharge Plan: Inpatient Hospitalization
[2019-12-29] MEDS: Lithium Carbonate TAB* 300 MG PO SCH ×2 (07:55→22:25)
--- NOTE | 2019-12-29 10:34 | PN ---
Subjective - Subjective Date of Service: 12/29/19 Service Type: [id number] Hosp care 35 min high complexity Subjective: Nursing Report: Patient sleeping on his own , making paranoid statements. This patient was seen and evaluated today. The patient was sleeping with staff member present. Earlier he made paranoid statements and asked some members of the nursing staff if they are trying to kill him. Objective - General Observations Appearance: Disheveled Appears Stated Age: Yes Stature: WNL Posture: WNL Behavior/Activity: WNL - Interaction Observations Attitude Towards Examiner: Cooperative Thought Process: Blocking Thought Content: Paranoid Thought Process: Lethality: Paranoid Ideation Hallucination Type: Denies Delusion Type: Persecution - Cognitive Function Orientation: Unable to Determine Level of Consciousness: Lethargic Insight: Difficulty Acknowledging Presence of Psyciatric Problems Judgment Within Normal Limits: No Ability to Make Reasonable Decisions: Serverely Impaired - Medication Compliance Cooperative with Inpatient Medication Regimen: No - Group Participation Participates in Group Activities: No Assessment - Assessment Merits Inpatient Hospitalization: For Immediate Safety Clinical Impression: 24 year old Male with a history of Bipolar Disorder with current manic episode presented to the emergency department by police after showing up to police station with body armor and [place] Pugh and was admitted to the BSU at [facility]. Plan - Plan Treatment Plan: Name: JOSHUA MIDDLETON Birthdate: 1995 [id number] Plan #Constant 1 to1 observation # Patient is improving with increased sleep on his own, able to follow re- direction. # Patient has persistent behavior that presents a danger to himself and others and has not been managed by upper dosing limits of multiple classes of medications such as anti psychotics, benzodiazepines, sedative anti- depressants and beta blockers. Patient recently experienced adverse side effect from anti-psychotic medication that prevents additional anti-psychotic to be administered at this time. # The only effective emergency behavioral control treatment has been conscious sedation with Ketamine and Dexmedetomidine # Continue [place] 600mg BID # Continue valium 10mg TID PRN. # Staff informed to hold po medications and do not wake if he is sleeping # Remeron 15mg qhs for sleep and akathisia treatment # Court ruled in favor of retention and treatment over objection # Restrict phone access to contact his family once per shift # Consider On track program once stabilized # Patients family was contacted and provided with a update today # Behavioral interventions to include ketamine IM or locked seclusion. Continued Medication Management: Continue Outpt Medication Medications: Current Medications Acetaminophen (Tylenol Tab*) 650 mg PO Q4H PRN PRN Reason: for pain; or Temp >101 F Al Hydrox/Mg Hydrox/Simethicone (Maalox Plus*) 30 ml PO Q4H PRN PRN Reason: INDIGESTION Last Admin: 12/29/19 00:20 Dose: 30 ml Diazepam (Valium Tab(*)) 10 mg PO Q8H PRN PRN Reason: AGITATION Last Admin: 12/28/19 22:07 Dose: 10 mg [place] Carbonate ([place] Carbonate Tab*) 300 mg PO BID DARRIN Last Admin: 12/29/19 07:55 Dose: 300 mg Mirtazapine (Remeron Tab*) 15 mg PO BEDTIME PRN PRN Reason: SLEEP Ondansetron HCl (Zofran Odt Tab*) 4 mg PO Q6H PRN PRN Reason: NAUSEA - Discharge Plan Discharge Plan: Inpatient Hospitalization
--- NOTE | 2019-12-30 08:53 | PN ---
Subjective - Subjective Date of Service: 12/30/19 Service Type: [id number] Hosp care 35 min high complexity Subjective: Nursing Report: Patient was visible on unit, Slept overnight. CC: "Fine" This patient was seen and evaluated today. He asked if everyone is okay and if anyone is trying to hurt him. He spoke to his parents using video chat. The patient did not need locked seclusion overnight. He did eat some lunch. Patient reported that he is tolerating medications without side effects. Patient denied fever, muscle stiffness, chest pain, shortness of breath. Objective - General Observations Appearance: Neat Appears Stated Age: Yes Stature: WNL Posture: Tense Eye Contact: Intense Behavior/Activity: Stereotyped, Peculiar, Impulsive - Interaction Observations Attitude Towards Examiner: Anxious Stated Mood: Expansive Affect: Restricted Speech Pattern/Tone: Normal Volume Thought Process: [place] Perception: Derealization Thought Content: Paranoid Thought Process: Lethality: Paranoid Ideation Hallucination Type: Denies Delusion Type: Denies - Cognitive Function Orientation: A&O x 4 Level of Consciousness: Awake Estimated Intelligence: Normal - Medication Compliance Cooperative with Inpatient Medication Regimen: Yes - Group Participation Participates in Group Activities: No Assessment - Assessment Merits Inpatient Hospitalization: For Immediate Safety Clinical Impression: 24 year old Male with a history of Bipolar Disorder with current manic episode presented to the emergency department by police after showing up to police station with body armor and [place] Pugh and was admitted to the BSU at [facility]. Plan - Plan Treatment Plan: Name: JOSHUA MIDDLETON Birthdate: 1995 [id number] #Constant 1 to1 observation # Patient is improving with increased sleep on his own, able to follow re- direction. # Over the course of this patients hospitalization, he has persistent behavior that presents a danger to himself and others and has not been managed by upper dosing limits of multiple classes of medications such as anti psychotics, benzodiazepines, sedative anti- depressants and beta blockers. Patient recently experienced adverse side effect from anti-psychotic medication that prevents additional anti-psychotic to be administered at this time. # The only effective emergency behavioral control treatment has been conscious sedation with Ketamine and Dexmedetomidine, or locked seclusion. # Continue [place] 600mg BID # Continue valium 10mg TID PRN. # Staff informed to hold po medications and do not wake if he is sleeping # Remeron 15mg qhs for sleep and akathisia treatment # Court ruled in favor of retention and treatment over objection # Restrict phone access to contact his family once per shift # Consider On track program once stabilized # Labs ordered CMP, CBC, [place], CK # Patients family was contacted and provided with a update today Continued Medication Management: Continue Outpt Medication Medications: Current Medications Acetaminophen (Tylenol Tab*) 650 mg PO Q4H PRN PRN Reason: for pain; or Temp >101 F Al Hydrox/Mg Hydrox/Simethicone (Maalox Plus*) 30 ml PO Q4H PRN PRN Reason: INDIGESTION Last Admin: 12/29/19 00:20 Dose: 30 ml Diazepam (Valium Tab(*)) 10 mg PO Q8H PRN PRN Reason: AGITATION Last Admin: 12/28/19 22:07 Dose: 10 mg [place] Carbonate ([place] Carbonate Tab*) 600 mg PO BID DARRIN Mirtazapine (Remeron Tab*) 15 mg PO BEDTIME PRN PRN Reason: SLEEP Ondansetron HCl (Zofran Odt Tab*) 4 mg PO Q6H PRN PRN Reason: NAUSEA - Discharge Plan Discharge Plan: Inpatient Hospitalization
--- NOTE | 2019-12-30 10:12 | DS ---
Subjective - Subjective Service Types: [id number] [facility] Day Mgmt complex over 30 min Discharge Date: 12/26/19 Subjective: Patient was transferred to the ICU in unstable condition for medical management due to possible NMS Justification for admission: For immediate safety CC "I have a plan to save the world and I am not involving the government 24 year old single male with a past history of bipolar I disorder came to the emergency room by police after he came to the police department wearing tactical gear with a [place] Oneal and told them he was going to take over. While on the unit the patient was seen pacing around the room writing multiple papers and placing them into piles. He reported that he has a plan and that he got a $5000 suit and 2 phones and a ear piece and has a plan to save the world. He said that no one is listening to him or caring for his dog and that this is making him upset. The patient was seen intervening with a incident of another peer and was refusing to leave and becoming argumentative with staff.He spoke about taking over a [employer] business and moving the company from the [facility] to the [facility]. He said " I do not need medications my mental health is fine, I am still suing the other hospital for giving me medications." Patient has a history of tachycardia and on admission heart rate was 128 and decreased to 108. He declined a EKG. Patient denied chest pain, palpitations, shortness of breath, or fever. The [place] Police department expressed concern that the patient mentioned that certain police officers do not use bullet proof vests. Upon evaluation, the patient denied homicidal ideation or having targeted hostility toward police officers or the mayor. Bipolar He reported feeling on edge and having an persistent abundance of energy most of the day without the use of substances. He said I have no many ideas all at once and no one wants to listen. He has had increased talkativeness where no one can interrupt. He has had a increase in intensity of goal directed activities and the decreased need to sleep for days. He expresed having super loo, and unlimited wealth. MDD He denied feelings of low self-worth , feeling empty inside, with feelings of hopelessness. He denied an abundance of sleep and denied weight loss. He said I am mostly manic and outgoing and not so much depressed. Anxiety He denied having panic attacks. He denied fear of crowds, or phobias. He denied worrying most of the day. PTSD Denied flashbacks, nightmares and avoidance of a prior traumatic event. Psychosis He denied hearing things that other people do not hear or seeing things other people do not see. He denied feeling that the TV is making references. He said that he is trustful of others and feels safe on the unit. The patient denied auditory and/ or visual hallucinations. PAST PSYCHIATRIC HISTORY: History of bipolar I disorder, recent manic episode 1st admission: 2 past hospitalizations at [facility] in June 2018 and September 2018 for sanjeev and one suicide attempt by cutting his wrist. Most recent admission was at [facility] [place] History of past suicide/homicide attempts : 1 past suicide attempt by cutting his wrist. He denied past homicidal and or violent incidents. Outpatient follow-up: Unknown Medications: He was tried on Depakote and Abilify in the past that he reported caused suicidal thoughts.Last admission he was given Alba and titrated up to 300mg PO PO BID, Seroquel 50mg PO QPM and titrated to 100mg PO QPM and Ativan 1mg PO BID PRN. . FAMILY HISTORY: - Suicide: Denied family history of suicide. - Mental illness: Sister Major Depressive disorder - Substance abuse: Uncle alcohol abuse SUBSTANCE ABUSE HISTORY: UDS + for cannabis. He denied using heroin , cocaine, and or prescription drug abuse. He has a history of smoking cannabis daily for the last 2 years for sleep He denied previous substance abuse treatment. He denied past or present nicotine use. He reported drinking whiskey daily for a year leading up his hospitalization in June 2018. He denied withdrawal, DUIs seizures or blackouts. SOCIAL HISTORY: He is a 23 year old single male lives in [place] with his parents. He grew up in [place]. 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 No history. He was raised by both of his parents and has a high school education. PAST MEDICAL HISTORY: Denied having medical conditions. He denied having sudden in the family. Patient has a history of tachycardia and hypertension. Denied diabetes or a family history . Allergies: Denied drug and or food allergies Physical Exam: Please see ED note Mental Status Exam on Admission Appearance: 24 year old male appears stated age, pacing around the room. Fair hygiene and grooming. BEHAVIOR: Uncooperative EYE CONTACT: poor PSYCHOMOTOR ACTIVITY: psychomotor agitation MOVEMENTS: restlessness SPEECH : pressured MOOD : " Upset " AFFECT : Type is elevated , irritable, angry, agitated, Range is expansive Mood Incongruent THOUGHT PROCESS: Flight of ideas THOUGHT CONTENT: grandiose delusions PERCEPTION: No current auditory or visual hallucinations. Doesnt appear to be responding to internal cues. No evidence of depersonalization , de-realization, or illusions SUICIDALITY unable to determine at this time HOMICIDALITY unable to determine at this time Insight/judgment: Poor insight and judgment ORIENTATION: Oriented to self, location, and time. Diagnosis on Admission : Bipolar I disorder, current manic episode. Diagnosis on Discharge: Bipolar I disorder, current manic episode, rule out NMS Condition at the time of discharge: Unstable and sent to the ICU for stabilization Objective - General Observations Appearance: Disheveled Appears Stated Age: Yes Stature: WNL Posture: Atypical Eye Contact: Intense Behavior/Activity: Peculiar, Impulsive - Interaction Observations Attitude Towards Examiner: Confused, Demanding Stated Mood: Irritable Affect: Restricted Speech Pattern/Tone: Excessive, Pressured Thought Process: Disorganized Perception: Derealization Thought Content: Paranoid Thought Process: Lethality: Homicidal Ideation, Paranoid Ideation Hallucination Type: Denies Delusion Type: Persecution, Grandeur - Cognitive Function Orientation: A&O x 4 Level of Consciousness: Awake Judgment Within Normal Limits: No Ability to Make Reasonable Decisions: Serverely Impaired - Medication Compliance Cooperative with Inpatient Medication Regimen: No - Group Participation Participates in Group Activities: No Treatment Course & Assessment Clinical Course & Impression: Hospital course part A: 24 year old Male with a history of Bipolar Disorder with current manic episode presented to the emergency department by police after showing up to police station with body armor and [place] Pugh and was admitted to the BSU at . Hospital course part B: Labs ordered included CBC, CMP, UDS, TSH, HBA1c, TSH, CK, Alba level, Toxicology screen, Urine analysis, and lipid profile. Labs were reviewed and vital signs were monitored during the course of admission. Medicine consulted for abnormal EKG findings and determined to be a normal variant During the course of the hospitalization the patient was on 2 anti-psychotic medications due to 3 failed treatment response with monotherapy and was not discharged on any antipsychotics due to having to discontinue given possible NMS. Court ruled in favor of retention and treatment over objection. Anti psychotics and lithium , trazodone were discontinued due to possible NMS. The patient was admitted to the adult behavioral unit and placed on 15 minute check for safety and later put on constant observation. Patient was given IV fluids, CMP, CBC, CK , monitor vital signs 24 year old single male with a past history of bipolar I disorder initially presented to the emergency room by police after he went to the police department wearing tactical gear with a Mexican Oneal and told them he was going to take over. He was admitted to the BSU showing signs of sanjeev The patient did not sleep much over the last 14 days despite multiple doses of Zyprexa, ambien Thorazine, valium. Klonopin, remeron, Ativan and Benadryl. Over the course of hospitalization he developed akathisia, confusion, enlarged tongue , fever, tachycardia, hypertension, Elevated CK 2825 and was transferred to the ICU at [facility]. Patient will be followed by psychiatry while on the medical service. AIMS was performed on admission and insignificant for involuntary movement disorders. Alba level was 0.96 Medications started included Zyprexa, lithium Thorazine, valium. Klonopin, remeron, Ativan. Trazodone for sleep, Propranolol for akathisia, Benadryl for EPS The patients family has been provided with daily updates. Consults included to hospitalist team. Patient was combative and assaultive during the course of admission and on multiple occasions received emergency IM anti-psychotic medications Patient will be discharged to the ICU and once stabilized will return to the BSU. Merits Inpatient Hospitalization: No Clear for Discharge: Adequate Clinical Respons Discharge Planning - Discharge Planning Discharge Plan: Inpatient Hospitalization Outpatient Program: [facility] Recommendations for Continuing Care: Medication Management, Routine Metabolic Monitoring Medications: Current Medications Acetaminophen (Tylenol Tab*) 650 mg PO Q4H PRN PRN Reason: for pain; or Temp >101 F Al Hydrox/Mg Hydrox/Simethicone (Maalox Plus*) 30 ml PO Q4H PRN PRN Reason: INDIGESTION Last Admin: 12/29/19 00:20 Dose: 30 ml Diazepam (Valium Tab(*)) 10 mg PO Q8H PRN PRN Reason: AGITATION Last Admin: 12/28/19 22:07 Dose: 10 mg [place] Carbonate (Alba Carbonate Tab*) 600 mg PO BID DARRIN Mirtazapine (Remeron Tab*) 15 mg PO BEDTIME PRN PRN Reason: SLEEP Ondansetron HCl (Zofran Odt Tab*) 4 mg PO Q6H PRN PRN Reason: NAUSEA Discharge Planning: Prescriptions provided for discharge [] Yes [x] No Follow up care details as per social work arrangements. Patient response to discharge plan: [x] eager for discharge [] agreeable with discharge plan [] ambivalent about discharge [] disagrees with discharge today
[2019-12-30] MEDS: Lithium Carbonate TAB* 300 MG PO SCH ×2 (10:42→21:01)
[2019-12-30 11:16] LABS: ABS Eosinophils 0.1 10^3/ul (0-0.6); ABS Lymphocytes 1.6 10^3/ul (1.0-4.8); ABS Monocytes 0.4 10^3/ul (0-0.8); ABS Neutrophils 6.2 10^3/ul (1.5-7.7); Eosinophil % 1.6 %; Hematocrit 41 % (42-52); Hemoglobin 14.4 g/dL (14.0-18.0); Lymphocyte % 19.5 %; Mean Corpuscular HGB Conc 35 g/dL (31-36); Mean Corpuscular Hemoglobin 31 pg (27-31); Mean Corpuscular Volume 90 fL (80-94); Mean Platelet Volume 6.4 fL (7.4-10.4); Platelet Count 332 10^3/uL (150-450); Red Blood Count 4.58 10^6 /uL (4.18-5.48); Red Cell Distribution Width 14 % (10-15); White Blood Count 8.4 10^3/uL (3.5-10.8)
[2019-12-30 11:32] LABS: Albumin 4.1 g/dL (3.2-5.2); Albumin/Globulin Ratio 1.5 (1-3); BUN/Creatinine Ratio 7.8 (8-20); Calcium 9.5 mg/dL (8.6-10.3); EGFR African American 152.9 (>60); EGFR Non-African American 126.3 (>60); Globulin 2.7 g/dL (2-4); Potassium 3.4 mmol/L (3.5-5.0); Total Bilirubin 0.9 mg/dL (0.2-1.0); Total Protein 6.8 g/dL (6.4-8.9)
[2019-12-30 11:33] LABS: Lithium 0.48 mmol/L (0.6-1.2)
[2019-12-30] MEDS: Acetaminophen TAB* 325 MG PO PRN (22:25)
[2019-12-31] MEDS: Lithium Carbonate TAB* 300 MG PO SCH ×2 (08:35→21:14)
--- NOTE | 2019-12-31 08:41 | PN ---
Subjective - Subjective Date of Service: 12/31/19 Service Type: 14638 Hosp care 35 min high complexity Subjective: Nursing Report: Patient in his room with staff member, ate half of his breakfast . Slept 6.5 hr overnight. CC: "Can I talk to Arleen" This patient was seen and evaluated today. He ate half of his breakfast this morning. He in agreement with giving blood for labs. He expressed enjoyment with talking with his family yesterday. He reported having adequate appetite and sleep. Per nursing, patient at times makes paranoid statements, he did not require locked seclusion overnight. Patient denied medication side effects. Patient asked if he had to go on any missions today. Patient reported feeling nausea. He denied fever, sweating, muscle pain/ stiffness/ rigidity, chest pain, shortness of breath, palpitations. Objective - General Observations Appearance: Neat Appears Stated Age: Yes Stature: WNL Posture: WNL Eye Contact: Intermittent Behavior/Activity: Accelerated - Interaction Observations Attitude Towards Examiner: Cooperative Stated Mood: Elevated Affect: Labile Speech Pattern/Tone: Normal Volume Thought Process: Goal Directed Perception: Derealization Thought Content: Paranoid Thought Process: Lethality: Paranoid Ideation Hallucination Type: Denies Delusion Type: Persecution - Cognitive Function Orientation: A&O x 4 Level of Consciousness: Awake Cognition: WNL Estimated Intelligence: Normal - Medication Compliance Cooperative with Inpatient Medication Regimen: Yes - Group Participation Participates in Group Activities: No Assessment - Assessment Merits Inpatient Hospitalization: For Immediate Safety Clinical Impression: 24 year old Male with a history of Bipolar Disorder with current manic episode presented to the emergency department by police after showing up to police station with body armor and [place] Pugh and was admitted to the BSU at [facility]. Plan - Plan Treatment Plan: Name: JOSHUA MIDDLETON Birthdate: 1995 [id number] #Constant/ Q15 Minute observation # Patient is improving with increased sleep on his own, able to follow re- direction. Thought process is more linear, paranoia has decreased, sleep and appetite have improved. # Over the course of this patients hospitalization, he has persistent behavior that presents a danger to himself and others and has not been managed by upper dosing limits of multiple classes of medications such as anti psychotics, benzodiazepines, sedative anti- depressants and beta blockers. Patient recently experienced adverse side effect from anti-psychotic medication that prevents additional anti-psychotic to be administered at this time. # Past effective emergency behavioral control in order to assure safety of himself and others include conscious sedation with Ketamine, Dexmedetomidine, and locked seclusion. # Continue [place] 600mg BID # Continue valium 10mg TID PRN. # Staff informed to hold po medications and do not wake if he is sleeping # Discontinue Remeron # Court ruled in favor of retention and treatment over objection # On track program referral completed # [place] 0.79 # CK 1778 Laboratory Results - last 24 hr 12/31/19 10:59 Total Creatine Kinase 1778 H [place] 0.79 Continued Medication Management: Continue Outpt Medication Medications: Current Medications Acetaminophen (Tylenol Tab*) 650 mg PO Q4H PRN PRN Reason: for pain; or Temp >101 F Last Admin: 12/30/19 22:25 Dose: 650 mg Al Hydrox/Mg Hydrox/Simethicone (Maalox Plus*) 30 ml PO Q4H PRN PRN Reason: INDIGESTION Last Admin: 12/29/19 00:20 Dose: 30 ml Diazepam (Valium Tab(*)) 10 mg PO Q8H PRN PRN Reason: AGITATION Last Admin: 12/28/19 22:07 Dose: 10 mg [place] Carbonate ([place] Carbonate Tab*) 600 mg PO BID DARRIN Last Admin: 12/31/19 08:35 Dose: 600 mg Mirtazapine (Remeron Tab*) 15 mg PO BEDTIME PRN PRN Reason: SLEEP Ondansetron HCl (Zofran Odt Tab*) 4 mg PO Q6H PRN PRN Reason: NAUSEA Last Admin: 12/31/19 06:08 Dose: 4 mg - Discharge Plan Discharge Plan: Inpatient Hospitalization
[2019-12-31 11:34] LABS: Lithium 0.79 mmol/L (0.6-1.2)
[2020-01-01] MEDS: Lithium Carbonate TAB* 300 MG PO SCH ×2 (09:02→22:33)
--- NOTE | 2020-01-01 10:03 | PN ---
Subjective - Subjective Date of Service: 01/01/20 Service Type: [id number] Hosp care 35 min high complexity Subjective: Nursing Report: Patient was visible on unit, no behavioral incidents. Slept overnight. He is attending group activities. CC: "I am good man" This patient was seen and evaluated today. He reported looking forward to going home. He reported having adequate appetite and sleep. The patient reported attending day groups. Per nursing no behavioral issues or overnight events reported. Patient reported that he is tolerating medications without side effects. He denied fever chest pain, shortness of breath, tremor, palpitations, muscle stiffness, Objective - General Observations Appearance: Neat Appears Stated Age: Yes Stature: WNL Posture: WNL Eye Contact: Intense Behavior/Activity: Peculiar, Impulsive - Interaction Observations Attitude Towards Examiner: Cooperative, Mistrustful Stated Mood: Anxious Affect: Labile Speech Pattern/Tone: Normal Volume Thought Process: Goal Directed Perception: Derealization Thought Content: Paranoid Thought Process: Lethality: Paranoid Ideation Hallucination Type: Denies Delusion Type: Denies - Cognitive Function Orientation: A&O x 4 Level of Consciousness: Awake Cognition: WNL - Medication Compliance Cooperative with Inpatient Medication Regimen: Yes - Group Participation Participates in Group Activities: Yes Assessment - Assessment Merits Inpatient Hospitalization: For Immediate Safety Clinical Impression: 24 year old Male with a history of Bipolar Disorder with current manic episode presented to the emergency department by police after showing up to police station with body armor and [place] Pugh and was admitted to the BSU at [facility]. Plan - Plan Treatment Plan: Name: JOSHUA MIDDLETON Birthdate: 1995 [id number] #[id number] Minute observation # Patient is improving with increased sleep on his own, able to follow re- direction. Thought process is more linear, paranoia has decreased, sleep duration and inertia and his appetite has shown improvement. # Over the course of this patients hospitalization, he has persistent behavior that presents a danger to himself and others and has not been managed by upper dosing limits of multiple classes of medications such as anti psychotics, benzodiazepines, sedative anti- depressants and beta blockers. Patient recently experienced adverse side effect from anti-psychotic medication that prevents additional anti-psychotic to be administered at this time. # Past effective emergency behavioral control in order to assure safety of himself and others include conscious sedation with Ketamine, Dexmedetomidine, and locked seclusion. # Continue [place] 600mg BID # Continue valium 10mg TID PRN. # Discontinue Remeron # Court ruled in favor of retention and treatment over objection # On track program referral completed # [place] 0.79 # CK 1778 Laboratory Results - last 24 hr 12/31/19 10:59 Total Creatine Kinase 1778 H [place] 0.79 Laboratory Results - last 24 hr 01/01/20 12:04 Total Creatine Kinase 1434 H Continued Medication Management: Continue Outpt Medication Medications: Current Medications Acetaminophen (Tylenol Tab*) 650 mg PO Q4H PRN PRN Reason: for pain; or Temp >101 F Last Admin: 12/30/19 22:25 Dose: 650 mg Al Hydrox/Mg Hydrox/Simethicone (Maalox Plus*) 30 ml PO Q4H PRN PRN Reason: INDIGESTION Last Admin: 12/29/19 00:20 Dose: 30 ml Diazepam (Valium Tab(*)) 10 mg PO Q8H PRN PRN Reason: AGITATION Last Admin: 12/28/19 22:07 Dose: 10 mg [place] Carbonate ([place] Carbonate Tab*) 600 mg PO BID DARRIN Last Admin: 01/01/20 09:02 Dose: 600 mg Ondansetron HCl (Zofran Odt Tab*) 4 mg PO Q6H PRN PRN Reason: NAUSEA Last Admin: 12/31/19 06:08 Dose: 4 mg - Discharge Plan Discharge Plan: Inpatient Hospitalization
--- NOTE | 2020-01-02 10:12 | PN ---
Subjective - Subjective Date of Service: 01/02/20 Service Type: 45926 Hosp care 35 min high complexity Subjective: Nursing Report: Patient was visible on unit, no behavioral incidents. Slept 7.5hr overnight. He is attending some group activities. CC: "I spoke to my girlfriend" This patient was seen and evaluated today. He reported he feels safe on the unit and is interacting with peers. The patients Mother was contacted and is advocating for long acting anti psychotic injection. 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 He reported having adequate sleep. The patient reports attending some day groups. Per nursing no behavioral issues or overnight events reported. Patient reported that he is tolerating medications without side effects. Patient denied tremor, vomiting, chest pain, palpitations, pacing, muscle stiffness. Objective - General Observations Appearance: Neat Appears Stated Age: Yes Stature: WNL Posture: WNL Behavior/Activity: Accelerated - Interaction Observations Attitude Towards Examiner: Cooperative Stated Mood: Elevated Affect: Restricted Speech Pattern/Tone: Normal Volume Thought Process: Coherent Perception: WNL Thought Content: WNL Hallucination Type: Denies Delusion Type: Denies - Cognitive Function Orientation: A&O x 4 Level of Consciousness: Awake Estimated Intelligence: Normal - Medication Compliance Cooperative with Inpatient Medication Regimen: Yes - Group Participation Participates in Group Activities: Partial Assessment - Assessment Merits Inpatient Hospitalization: For Immediate Safety Clinical Impression: 24 year old Male with a history of Bipolar Disorder with current manic episode presented to the emergency department by police after showing up to police station with body armor and [place] Pugh and was admitted to the BSU at [facility]. Plan - Plan Treatment Plan: Name: JOSHUA MIDDLETON Birthdate: 1995 [id number] #Q30 Minute observation with staff pass and computer # Patient is improving with increased sleep on his own, able to follow re- direction. Thought process is more linear, paranoia has decreased, sleep duration and inertia and his appetite have shown improvement. # Over the course of this patients hospitalization, he has persistent behavior that presents a danger to himself and others and has not been managed by upper dosing limits of multiple classes of medications such as anti psychotics, benzodiazepines, sedative anti- depressants and beta blockers. Patient recently experienced adverse side effect from anti-psychotic medication that prevents additional anti-psychotic to be administered at this time. # Past effective emergency behavioral control in order to assure safety of himself and others include conscious sedation with Ketamine, Dexmedetomidine, and locked seclusion. # Continue [place] 600mg BID # Continue valium 10mg TID PRN. # Court ruled in favor of retention and treatment over objection # On track program referral completed # [place] 0.53 # CK 1187 trending down # Will start invega 3mg qhs for tolerance and plan to give long acting injection Laboratory Results - last 24 hr 12/31/19 10:59 Total Creatine Kinase 1778 H [place] 0.79 Laboratory Results - last 24 hr 01/01/20 12:04 Total Creatine Kinase 1434 H Laboratory Results - last 24 hr 01/02/20 01/02/20 11:25 11:25 Total Creatine Kinase 1187 H [place] 0.53 L Continued Medication Management: Continue Outpt Medication Medications: Current Medications Acetaminophen (Tylenol Tab*) 650 mg PO Q4H PRN PRN Reason: for pain; or Temp >101 F Last Admin: 12/30/19 22:25 Dose: 650 mg Al Hydrox/Mg Hydrox/Simethicone (Maalox Plus*) 30 ml PO Q4H PRN PRN Reason: INDIGESTION Last Admin: 12/29/19 00:20 Dose: 30 ml Diazepam (Valium Tab(*)) 10 mg PO Q8H PRN PRN Reason: AGITATION Last Admin: 12/28/19 22:07 Dose: 10 mg [place] Carbonate ([place] Carbonate Tab*) 600 mg PO BID DARRIN Last Admin: 01/01/20 22:33 Dose: 600 mg Ondansetron HCl (Zofran Odt Tab*) 4 mg PO Q6H PRN PRN Reason: NAUSEA Last Admin: 12/31/19 06:08 Dose: 4 mg - Discharge Plan Discharge Plan: Inpatient Hospitalization
[2020-01-02] MEDS: Lithium Carbonate TAB* 300 MG PO SCH ×2 (11:27→22:32)
--- NOTE | 2020-01-02 11:51 | PN ---
BSU: Group Therapy Note - Service Type Service Type: [id number] Group Psychotherapy - Cognitive Behavioral Group Therapy ( CBT):Patient was attentive and participatory in CBT programming this morning, and remained in good behavioral control. Patient expressed positive insights regarding relevant treatment interventions and goals.
[2020-01-02] MEDS ORDERED: Paliperidone ER TAB* 3 MG TAB.ER PO SCH ×2 (21:00)
[2020-01-03] MEDS: Lithium Carbonate TAB* 300 MG PO SCH ×2 (09:22→21:41)
--- NOTE | 2020-01-03 10:18 | PN ---
Subjective - Subjective Date of Service: 01/03/20 Service Type: 52701 Hosp care 35 min high complexity Subjective: Nursing Report: Patient was visible on unit, no behavioral incidents. Slept overnight. Attending some group activities. CC: "I am good This patient was seen and evaluated today. He denied side effects from medications, denied muscle stiffness, rigidity, fever, palpitations. He reported having adequate appetite and sleep. The patient went out on staff pass without event. The patient asked staff if someone was messing with his bed when he was gone. Per nursing no behavioral issues or overnight events reported. Patient denied side effects from medications. Objective - General Observations Appearance: Neat Appears Stated Age: Yes Stature: WNL Posture: WNL Eye Contact: Average Behavior/Activity: WNL - Interaction Observations Attitude Towards Examiner: Cooperative Stated Mood: Euthymic Affect: Restricted Speech Pattern/Tone: Normal Volume Thought Process: Coherent Perception: WNL Thought Content: WNL Thought Process: Lethality: Paranoid Ideation Hallucination Type: Denies Delusion Type: Denies - Cognitive Function Orientation: A&O x 4 Level of Consciousness: Awake Cognition: WNL - Medication Compliance Cooperative with Inpatient Medication Regimen: Yes - Group Participation Participates in Group Activities: Partial Assessment - Assessment Merits Inpatient Hospitalization: For Immediate Safety Clinical Impression: 24 year old Male with a history of Bipolar Disorder with current manic episode presented to the emergency department by police after showing up to police station with body armor and [place] Pugh and was admitted to the BSU at [facility]. Plan - Plan Treatment Plan: Name: JOSHUA MIDDLETON Birthdate: 1995 [id number] Minute observation with staff pass and computer # Patient is improving with increased sleep on his own, able to follow re- direction. Thought process is more linear, paranoia has decreased, sleep duration and inertia and his appetite have shown improvement. # Past effective emergency behavioral control in order to assure safety of himself and others include conscious sedation with Ketamine, Dexmedetomidine, and locked seclusion. # Continue [place] 600mg BID # Decrease valium 10mg BID PRN. # Court ruled in favor of retention and treatment over objection # On track program referral completed # [place] 0.53 # CK 1187 trending down # Patient received invega PO last night without adverse effects. The patient will receive 234mg long acting invega injection today 01/03/20 with plan to get 117mg on 01/07/20 # Will closely monitor vital signs TID, clinical signs for side effects and CK level lab ordered for 01/04/20 Tentative Discharge 01/07/20 Laboratory Results - last 24 hr 01/01/20 12:04 Total Creatine Kinase 1434 H Laboratory Results - last 24 hr 01/02/20 01/02/20 11:25 11:25 Total Creatine Kinase 1187 H [place] 0.53 L 01/03/20 01/03/20 01/03/20 18:39 21:26 21:53 Temperature 98.5 F Pulse Rate 72 Respiratory 16 16 Rate Blood Pressure 140/76 (mmHg) O2 Sat by Pulse 100 Oximetry Continued Medication Management: Continue Outpt Medication Medications: Current Medications Acetaminophen (Tylenol Tab*) 650 mg PO Q4H PRN PRN Reason: for pain; or Temp >101 F Last Admin: 12/30/19 22:25 Dose: 650 mg Al Hydrox/Mg Hydrox/Simethicone (Maalox Plus*) 30 ml PO Q4H PRN PRN Reason: INDIGESTION Last Admin: 12/29/19 00:20 Dose: 30 ml Diazepam (Valium Tab(*)) 10 mg PO Q8H PRN PRN Reason: AGITATION Last Admin: 12/28/19 22:07 Dose: 10 mg [place] Carbonate ([place] Carbonate Tab*) 600 mg PO BID [facility] Last Admin: 01/03/20 09:22 Dose: 600 mg Ondansetron HCl (Zofran Odt Tab*) 4 mg PO Q6H PRN PRN Reason: NAUSEA Last Admin: 12/31/19 06:08 Dose: 4 mg Paliperidone (Invega Er Tab*) 3 mg PO BEDTIME [facility] Last Admin: 01/02/20 22:32 Dose: 3 mg - Discharge Plan Discharge Plan: Inpatient Hospitalization
[2020-01-03] MEDS ORDERED: Paliperidone SUSTENNA* 234 MG/1.5 ML IM ONE (11:38)
[2020-01-03] MEDS ORDERED: Diazepam TAB(*) 10 MG PO PRN (11:50)
[2020-01-04] MEDS: Lithium Carbonate TAB* 300 MG PO SCH ×2 (11:11→21:53)
[2020-01-04] MEDS: Acetaminophen TAB* 325 MG PO PRN (19:42)
--- NOTE | 2020-01-04 20:45 | PN ---
Subjective - Subjective Date of Service: 01/04/20 Service Type: 65918 Hosp care 15 min low complexity Subjective: Mr. Álvarez has no complaints, either physical or psychiatric. He reports his mood is fine, and he is sleeping ok, though still adapting to how medications are affecting his sleep. He denies any ill effects of his IM Invega. Objective - General Observations Appearance: Neat Appears Stated Age: Yes Stature: WNL Posture: WNL Eye Contact: Average Behavior/Activity: WNL - Interaction Observations Attitude Towards Examiner: Cooperative Stated Mood: Euthymic - if a bit diffuse Affect: Restricted - albeit unprovoked toward wider expression Speech Pattern/Tone: Clear, Appropriate, Normal Volume Thought Process: Coherent, Goal Directed Perception: WNL Thought Content: WNL Hallucination Type: None Delusion Type: None - Cognitive Function Orientation: A&O x 4 Level of Consciousness: Awake, Alert, Appropriate Cognition: WNL Estimated Intelligence: Normal - Medication Compliance Cooperative with Inpatient Medication Regimen: Yes - Group Participation Participates in Group Activities: Partial Assessment - Assessment Clinical Impression: 24 year old Male with a history of Bipolar Disorder with current manic episode presented to the emergency department by police after showing up to police station with body armor and [place]ag[place] Pugh and was admitted to the B[facility] at [facility]. on 01.04.20, reports stable mood, adequate sleep, tolerating GAMBINO well so far, with no complaints. Plan - Plan Treatment Plan: Name: JOSHUA ÁLVAREZ Birthdate: 1995 [id number] Minute observation with staff pass and computer # Patient is improving with increased sleep on his own, able to follow re- direction. Thought process is more linear, paranoia has decreased, sleep duration and inertia and his appetite have shown improvement. # Past effective emergency behavioral control in order to assure safety of himself and others include conscious sedation with Ketamine, Dexmedetomidine, and locked seclusion. # Continue [place] 600mg BID # Decrease valium 10mg BID PRN. # Court ruled in favor of retention and treatment over objection # On track program referral completed # [place] 0.53 # CK 1187 trending down # Patient received invega PO last night without adverse effects. The patient will receive 234mg long acting invega injection today 01/03/20 with plan to get 117mg on 01/07/20 # Will closely monitor vital signs TID, clinical signs for side effects and CK level lab ordered for 01/04/20 Tentative Discharge 01/07/20 01.04.20 - no change in treatment plan. CK still trending down. Recheck Monday. Laboratory Results - last 24 hr 01/04/20 18:12 Total Creatine Kinase 1000 H Laboratory Results - last 24 hr 01/01/20 12:04 Total Creatine Kinase 1434 H Laboratory Results - last 24 hr 01/02/20 01/02/20 11:25 11:25 Total Creatine Kinase 1187 H [place] 0.53 L 01/03/20 01/03/20 01/03/20 18:39 21:26 21:53 Temperature 98.5 F Pulse Rate 72 Respiratory 16 16 Rate Blood Pressure 140/76 (mmHg) O2 Sat by Pulse 100 Oximetry Medications: Current Medications Acetaminophen (Tylenol Tab*) 650 mg PO Q4H PRN PRN Reason: for pain; or Temp >101 F Last Admin: 01/04/20 19:42 Dose: 650 mg Al Hydrox/Mg Hydrox/Simethicone (Maalox Plus*) 30 ml PO Q4H PRN PRN Reason: INDIGESTION Last Admin: 12/29/19 00:20 Dose: 30 ml Diazepam (Valium Tab(*)) 10 mg PO Q12H PRN PRN Reason: AGITATION [place] Carbonate ([place] Carbonate Tab*) 600 mg PO BID [facility] Last Admin: 01/04/20 11:11 Dose: 600 mg - Discharge Plan Discharge Plan: Outpatient Follow Up
[2020-01-05] MEDS: Lithium Carbonate TAB* 300 MG PO SCH ×2 (11:42→20:09)
[2020-01-06] MEDS: Lithium Carbonate TAB* 300 MG PO SCH ×2 (09:00→21:36)
--- NOTE | 2020-01-06 11:01 | PN ---
Subjective - Subjective Date of Service: 01/06/20 Service Type: 99403 Hosp care 35 min high complexity Subjective: Nursing Report: The patient was visible on unit, no behavioral incidents. Slept overnight. CC: "Good" This patient was seen and evaluated today. He reported he feels safe on the unit and is interacting with peers. He denied muscle rigidity, tremor, confusion , fever, chest pain, nausea. He is looking forward to going home. His family is in agreement with discharge plan. He completed the Ontrack program intake today. He denied paranoia, or thinking others are out to hurt him. He reported having adequate appetite and sleep. The patient reports attending day groups. Per nursing no behavioral issues or overnight events reported. Patient reported that he is tolerating medications without side effects. Objective - General Observations Appearance: Neat Appears Stated Age: Yes Stature: WNL Posture: WNL Eye Contact: Average Behavior/Activity: WNL - Interaction Observations Attitude Towards Examiner: Cooperative Stated Mood: Euthymic Affect: Full Speech Pattern/Tone: Clear, Appropriate, Normal Volume Thought Process: Coherent Perception: WNL Thought Content: WNL Hallucination Type: None Delusion Type: None - Cognitive Function Orientation: A&O x 4, Unable to Determine Cognition: WNL Estimated Intelligence: Normal - Medication Compliance Cooperative with Inpatient Medication Regimen: Yes - Group Participation Participates in Group Activities: Yes Assessment - Assessment Merits Inpatient Hospitalization: For Immediate Safety Clinical Impression: 24 year old Male with a history of Bipolar Disorder with current manic episode presented to the emergency department by police after showing up to police station with body armor and [place] Pugh and was admitted to the B[facility] at [facility]. Plan - Plan Treatment Plan: Name: JOSHUA MIDDLETON Birthdate: 1995 [id number] #[id number] Minute observation with staff pass and computer # Patient is improving with increased sleep on his own, able to follow re- direction. Thought process is more linear and goal directed , paranoia has decreased, sleep inertia and duration have increased along with his appetite. He shows wider range of affect and logical reasoning. # Past effective emergency behavioral control in order to assure safety of himself and others include conscious sedation with Ketamine, Dexmedetomidine, and locked seclusion. # Continue [place] 600mg BID # valium 10mg BID PRN. # Court ruled in favor of retention and treatment over objection # Follow up with On track program intake completed and PCP # [place] 0.53 # CK 1000 trending down , vital signs stable, no objective signs of side effects. # Patient received invega PO last night without adverse effects. The patient received 234mg long acting invega injection on 01/03/20 without complications or side effects and next injection due around 01/31/20. Plan to receive booster of 156mg on 01/07/20. 117mg not available. Tentative Discharge: Monday01/04/20 18:12 Total Creatine Kinase 1000 H Vital Signs Temp Pulse Resp BP Pulse Ox 98.3 F 100 16 120/69 100 01/06/20 08:00 01/06/20 08:00 01/06/20 09:00 01/06/20 08:00 01/06/20 08:00 Continued Medication Management: Continue Outpt Medication Medications: Current Medications Acetaminophen (Tylenol Tab*) 650 mg PO Q4H PRN PRN Reason: for pain; or Temp >101 F Last Admin: 01/04/20 19:42 Dose: 650 mg Al Hydrox/Mg Hydrox/Simethicone (Maalox Plus*) 30 ml PO Q4H PRN PRN Reason: INDIGESTION Last Admin: 12/29/19 00:20 Dose: 30 ml Diazepam (Valium Tab(*)) 10 mg PO Q12H PRN PRN Reason: AGITATION [place] Carbonate ([place] Carbonate Tab*) 600 mg PO BID [facility] Last Admin: 01/06/20 09:00 Dose: 600 mg - Discharge Plan Discharge Plan: Inpatient Hospitalization Outpatient Program: [facility]
[2020-01-06] MEDS ORDERED: diPHENhydraMINE PO* 50 MG ONE (22:47)
[2020-01-07] MEDS: Lithium Carbonate TAB* 300 MG PO SCH (08:35)
--- NOTE | 2020-01-07 08:37 | DS ---
Subjective - Subjective Service Types: [id number] [facility] Day [facility]mt complex over 30 min Discharge Date: 01/07/20 Subjective: CC: " I am better" Patient looks forward to getting back home and spending time with his family. The patient was seen and evaluated before discharge today. The patient reported having adequate appetite and sleep. The patient reported participating in some of the day groups. Per nursing no behavioral issues or overnight events reported. Patient reported tolerating medications without side effects. H&P from Re- admission from ICU to BSU on 12/27/19 Reason for consult: Psychiatric management and continuation of care CC "Are you a doctor? 24 year old single male with a past history of bipolar I disorder initially presented to the emergency room by police after he went to the police department wearing tactical gear with a [place] Oneal and told them he was going to take over. He was admitted to the BSU showing signs of sanjeev The patient hasnt slept much over the last 14 days despite multiple doses of Zyprexa, Thorazine, valium. Klonopin, remeron, Ativan and Benadryl. Over the course of hospitalization he developed akathisia, confusion, enlarged tongue, fever, tachycardia, hypertension, Elevated CK 2825 and last evening was transferred to the ICU. After being transferred to the ICU he was started on a drip of Dexmedetomidine which helped him sleep, this was maximized and discontinued. While in the ICU the patient woke up disorientated and began to take off monitoring wires and picked up a jayjay to swing it, security was called and the patient was given ativan and went back to sleep. PAST PSYCHIATRIC HISTORY: History of bipolar I disorder, recent manic episode 1st admission: 2 past hospitalizations at [facility] in June 2018 and September 2018 for sanjeev and one suicide attempt by cutting his wrist. Most recent [place] was [place] [facility] [place] History of past suicide/homicide attempts : 1 past suicide attempt by cutting his wrist. He denied past homicidal and or violent incidents. Medications: He was tried on Depakote and Abilify in the past that he reported caused suicidal thoughts.Last admission he was given [place] and titrated up to 300mg PO PO BID, Seroquel 50mg PO QPM and titrated to 100mg PO QPM and Ativan 1mg PO BID PRN. . FAMILY HISTORY: - Suicide: Denied family history of suicide. - Mental illness: Sister Major Depressive disorder - Substance abuse: Uncle alcohol abuse SUBSTANCE ABUSE HISTORY: UDS + for cannabis. He denied using heroin , cocaine, and or prescription drug abuse. He has a history of smoking cannabis daily for the last 2 years for sleep He denied previous substance abuse treatment. He denied past or present nicotine use. He reported drinking whiskey daily for a year leading up his hospitalization in June 2018. He denied withdrawal, DUIs seizures or blackouts. SOCIAL HISTORY: He is a 23 year old single male lives in [place] with his parents. He grew up in [place]. He works in sales at [employer]. No history. He was raised by both of his parents and has a high school education. PAST MEDICAL HISTORY: Denied having medical conditions. He denied having sudden in the family. Patient has a history of tachycardia and hypertension. Denied diabetes or a family history . Allergies: Denied drug and or food allergies Mental Status Exam Appearance: 24 year old male appears stated age, obtunded in bed BEHAVIOR: Uncooperative EYE CONTACT: poor PSYCHOMOTOR ACTIVITY: psychomotor retardation SPEECH : low volume MOOD : "Are you against me " AFFECT : Type is irritable THOUGHT PROCESS: non linear THOUGHT CONTENT: paranoid delusions SUICIDALITY unable to determine at this time HOMICIDALITY unable to determine at this time Insight/judgment: Poor insight and judgment ORIENTATION: Disoriented to location, and time. Diagnosis Bipolar I disorder, Ruled out Neuroleptic malignant syndrome. Original admission H&P on 12/13/19 Justification for admission: For immediate safety CC "I have a plan to save the world and I am not involving the government 24 year old single male with a past history of bipolar I disorder came to the emergency room by police after he came to the police department wearing tactical gear with a [place] Oneal and told them he was going to take over. While on the unit the patient was seen pacing around the room writing multiple papers and placing them into piles. He reported that he has a plan and that he got a $5000 suit and 2 phones and a ear piece and has a plan to save the world. He said that no one is listening to him or caring for his dog and that this is making him upset. The patient was seen intervening with a incident of another peer and was refusing to leave and becoming argumentative with staff.He spoke about taking over a [employer] business and moving the company from the [facility] to the [facility]. He said " I do not need medications my mental health is fine, I am still suing the other hospital for giving me medications." Patient has a history of tachycardia and on admission heart rate was 128 and decreased to 108. He declined a EKG. Patient denied chest pain, palpitations, shortness of breath, or fever. The [place] [employer] department expressed concern that the patient mentioned that certain police officers do not use bullet proof vests. Upon evaluation, the patient denied homicidal ideation or having targeted hostility toward police officers or the mayor. Bipolar He reported feeling on edge and having an persistent abundance of energy most of the day without the use of substances. He said I have no many ideas all at once and no one wants to listen. He has had increased talkativeness where no one can interrupt. He has had a increase in intensity of goal directed activities and the decreased need to sleep for days. He expresed having super loo, and unlimited wealth. MDD He denied feelings of low self-worth , feeling empty inside, with feelings of hopelessness. He denied an abundance of sleep and denied weight loss. He said I am mostly manic and outgoing and not so much depressed. Anxiety He denied having panic attacks. He denied fear of crowds, or phobias. He denied worrying most of the day. PTSD Denied flashbacks, nightmares and avoidance of a prior traumatic event. Psychosis He denied hearing things that other people do not hear or seeing things other people do not see. He denied feeling that the TV is making references. He said that he is trustful of others and feels safe on the unit. The patient denied auditory and/ or visual hallucinations. PAST PSYCHIATRIC HISTORY: History of bipolar I disorder, recent manic episode 1st admission: 2 past hospitalizations at [facility] in June 2018 and September 2018 for sanjeev and one suicide attempt by cutting his wrist. Most recent admission was [place] [facility] [place] History of past suicide/homicide attempts : 1 past suicide attempt by cutting his wrist. He denied past homicidal and or violent incidents. Outpatient follow-up: Unknown Medications: He was tried on Depakote and Abilify in the past that he reported caused suicidal thoughts.Last admission he was given [place] and titrated up to 300mg PO PO BID, Seroquel 50mg PO QPM and titrated to 100mg PO QPM and Ativan 1mg PO BID PRN. . FAMILY HISTORY: - Suicide: Denied family history of suicide. - Mental illness: Sister Major Depressive disorder - Substance abuse: Uncle alcohol abuse SUBSTANCE ABUSE HISTORY: UDS + for cannabis. He denied using heroin , cocaine, and or prescription drug abuse. He has a history of smoking cannabis daily for the last 2 years for sleep He denied previous substance abuse treatment. He denied past or present nicotine use. He reported drinking whiskey daily for a year leading up his hospitalization in June 2018. He denied withdrawal, DUIs seizures or blackouts. SOCIAL HISTORY: He is a 23 year old single male lives in [place] with his parents. He grew up in [place]. 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 He was raised by both of his parents and has a high school education. PAST MEDICAL HISTORY: Denied having medical conditions. He denied having sudden in the family. Patient has a history of tachycardia and hypertension. Denied diabetes or a family history . Allergies: Denied drug and or food allergies Physical Exam: Please see ED note Mental Status Exam on Admission Appearance: 24 year old male appears stated age, pacing around the room. Fair hygiene and grooming. BEHAVIOR: Uncooperative EYE CONTACT: poor PSYCHOMOTOR ACTIVITY: psychomotor agitation MOVEMENTS: restlessness SPEECH : pressured MOOD : " Upset " AFFECT : Type is elevated , irritable, angry, agitated, Range is expansive Mood Incongruent THOUGHT PROCESS: Flight of ideas THOUGHT CONTENT: grandiose delusions PERCEPTION: No current auditory or visual hallucinations. Doesnt appear to be responding to internal cues. No evidence of depersonalization , de-realization, or illusions SUICIDALITY unable to determine at this time HOMICIDALITY unable to determine at this time Insight/judgment: Poor insight and judgment ORIENTATION: Oriented to self, location, and time. Diagnosis on Admission : Bipolar I disorder, current manic episode. Diagnosis on Discharge: Bipolar I disorder,recent manic episode currently in remission Condition at the time of discharge: At the time of discharge the patient showed improvement of sleep and appetite. The patient was not a danger to self or others. The patient denied suicidal ideation, intent or plan. The patient denied homicidal targets, ideation, intent or plan. This patient participated in psychosocial rehabilitation and gained some insight into problems. The patient gained insight into mental illness, triggers, and treatment. The patient took medication as prescribed. The patient denied side effects of medication and objective signs of side effects were not evident. Therapy Resources were offered to the patient. Patient was given a supply of prescriptions at the time of discharge. The patient plans to attend follow up care with the follow up arrangements that were discussed and put in place. Patient was asked to keep appointments as scheduled, take medication as prescribed, have routine follow up care with their primary care physician and refrain from any use of alcohol or drugs. Objective - General Observations Appearance: Neat Appears Stated Age: Yes Stature: WNL Posture: WNL Eye Contact: Average Behavior/Activity: WNL - Interaction Observations Attitude Towards Examiner: Cooperative Stated Mood: Euthymic Affect: Full Speech Pattern/Tone: Clear, Appropriate, Normal Volume Thought Process: Coherent Perception: WNL Thought Content: WNL Hallucination Type: None Delusion Type: None - Cognitive Function Orientation: A&O x 4 Level of Consciousness: Awake Cognition: WNL Estimated Intelligence: Normal Insight: WNL Judgment Within Normal Limits: Yes - Medication Compliance Cooperative with Inpatient Medication Regimen: Yes - Group Participation Participates in Group Activities: Partial Treatment Course & Assessment Clinical Course & Impression: Hospital course part A: 24 year old Male with a history of Bipolar Disorder with current manic episode presented to the emergency department by police after showing up to police station with body armor and [place] Pugh and was admitted to the BSU at [facility]. Hospital course part B: Labs ordered included CBC, CMP, UDS, TSH, HBA1c, TSH, Toxicology screen, CK , lithium level, Urine analysis, and lipid profile. Labs were reviewed and vital signs were monitored during the course of admission. EKG ordered and hospitalist was consulted for abnormal EKG findings and determined to be a normal variant in his age group. Patient was advised to continue to follow up with PCP. Patient was on 2 anti-psychotic medications due to 3 failed treatment response with monotherapy and was later titrated to monotherapy with Invega long acting injection. The patient was admitted to the adult behavioral unit and placed on 15 minute check for safety. At a later time the patient was on Q30 minute observation and staff pass privileges. After those limits were extended, the patient was safe on all checks and there were no occurrence of behavioral incidents. The patient did well on the unit and went to groups. The patient maximized the therapeutic value offered by the inpatient psychiatric care environment. The patient had adequate sleep and a regular appetite after stabilization. After re admittance, the patient tolerated medication changes without side effects. Group therapy and services were offered. The risks, benefits, and alternative treatment options were discussed as well as of the risks of refusing treatment. Treatment associated risks discussed with the patient. After this discussion the patient made an acknowledgement of this understanding. Follow up care appointments were put in place. HBA1c, glucose, and lipid panel was ordered to monitor metabolic status. Patient is able to follow re-direction. Thought process is more linear and goal directed , sleep inertia and duration have increased along with his appetite. He shows wider range of affect and logical reasoning. During this patients manic episode the patient became aggressive and combative. He required multiple episodes of locked seclusion. Effective emergency behavioral control in order to assure safety of himself and others included conscious sedation with Ketamine, Dexmedetomidine, and locked seclusion in order to minimize the risk of medication side effects. During the patients initial hospitalization the patient did not sleep much for the first 2 weeks despite multiple doses of Zyprexa, ambien Thorazine, valium. Klonopin, remeron, Ativan and Benadryl. Over the course of hospitalization he developed akathisia, confusion, enlarged tongue, fever, tachycardia, hypertension, Elevated CK 2825 and was transferred to the ICU at [facility]. Since being re- admittance the patient did not show signs of NMS or EPS. At that time the patent was discontinued on all anti-psychotics and lithium until labs and vital signs could be followed and monitored and a washout period elapsed. Tolerance was tested using oral invega before initiation of long acting invega injection was given. The patient choose not to have further tolerance testing before receiving the long acting injection. His reasons included that he has been in the hospital for a month and felt fine. Monitoring for metabolic changes was reviewed and it was emphasized to the patient to be continued to be monitored upon discharge. The patient was informed not to abruptly stop or start new medications before consulting with a medical professional. The patient showed Improvements since the time of admission which include: a broader range of affect, regular sleep and a decrease in manic features and paranoia. The patient expressed their readiness for discharge. The patient denied suicidal and or homicidal ideation intent or plan. Overall, the patient responded well to inpatient treatment as evidenced by their report of strengthening of coping mechanisms, reduced distress, and a more positive outlook on their circumstances. Of note there was an improvement of recognizing how non compliance with medications can cause behavioral changes including manic episodes. Safety precautions were put in place which included involving the patient and their family to closely monitor for changes in mental state. In addition, implementing follow up care, screening for the need to remove/securing firearms , weapons and stockpile of medications. Patient/ family instructed to immediately call 911 should any safety concerns arise. DIE BARBER was checked and no indications of prescription abuse or diversion. Patient advised of the lethality and dangerousness of taking medications in excess and combining medications with pain medications and/ or with alcohol and acknowledged this understanding. AIMS was performed and insignificant for involuntary movement disorders. The patient was advised of the 24 hour / 7 days a week availability of the emergency room and to call 911 in the event of an emergency such as being suicidal and/ or homicidal. The patient was informed of the contact information for [facility], Suicide Prevention and Crisis Services, National Suicide Prevention Lifeline, [facility], Alcoholics Anonymous, and [facility]. [place] level was 0.53 and they were advised about the importance of monitoring medication levels after leaving the hospital. CK trended down to 765. Medications started included [place] 600mg BID and Valium 10mg BID PRN. The patient received 234mg long acting invega injection on 01/03/20 without complications or side effects and booster of 156mg on 01/07/20. Next invega injection is due around 01/31/20. It was confirmed that the health system can continue treatment. At the time of discharge the patient did not show any sign of sanjeev, NMS, EPS, TD, akathisia, serotonin syndrome, lithium toxicity. Family meeting took place before discharge over zoom. The family confirmed that the patient is at their baseline. At this time both the patient and family are eager for discharge and are in agreement with the discharge plan and can receive care in the less restrictive outpatient setting. They were advised on how the days following discharge can be a vulnerable period and to look out for warning signs associated with decompensation and progression of mental illness. They were notified of the resources available in the event these situations arise and confirmed that the patient has no access to firearms or stockpiles of medications. Consults included to hospitalist team who transferred the patient to ICU to rule out NMS and the patient was readmitted to the BSU. Patient was psychiatrically stabilized since 12/30/19 to present. Patient was assaultive and behavioral problem during the beginning of this patients admission, and after 17 days achieved stabilization . The patient showed good hygiene and was able to carry out activities of daily living. Patient will be discharged to live at home with his parents. The police department was notified upon discharge. Follow up appointment at [facility]. Patient informed of follow up appointment times. See more details for follow up care in the discharge plan. Risk factors were mitigated by establishing the patients baseline with close contacts and arranging a family meeting on 2 occasions. Implemented precautionary safety measures by confirming no stockpiles of medications and no access to firearms, provided mental health treatment, stabilization of psychiatric symptoms, provided resources to outpatient services, as well as provided a supportive care environment and therapy resources during the course of hospitalization. A safety plan was created by the patient and this was reviewed with the patient and treatment team. The patient verbalized the steps they would take to ensure their safety in the event of a crisis or they begin to show signs that they have identified when they are not doing well. A tailored treatment plan was devised to provide to assistance with medication compliance. Risk factors: Male, Bipolar I disorder, Prior history of a suicide attempt , recent hospitalization. Patient recently experienced a loss of a friend that by suicide. Past history of medication non- compliance Protective factors: In a relationship. At discharge patient did not have suicidal and or homicidal ideation, intent or plan. Has social/ family support system. Currently no feelings of hopelessness, not in an occupation of social isolation, doesnt have multiple medical conditions, no family history of suicide, doesnt have access to firearms. Doesnt have command hallucinations and or psychotic features at this time. No current substance abuse. No current alcohol abuse. Not an anniversary of a loss of a loved one. The patient is currently future orientated. Patient is currently engaged in treatment and compliant with medication. No barriers to seek mental health treatment. Not incarcerated. Not middle or older age. No history of self-injurious behavior. The patient did not have a cultural belief that supported suicide. Modifiable risk factors that were addressed include presenting psychiatric symptoms, assessment to lethal means, access to mental health treatment, resources for continued care, assessment and treatment of active psychiatric symptoms Current Non- modifiable risk factors include prior suicide attempt, history of bipolar disorder, recent hospitalization. Recent loss of a friend, Past history of medication non- compliance Sodium 140 mmol/L (135-145) 12/30/19 11:08 Potassium 3.4 mmol/L (3.5-5.0) L 12/30/19 11:08 BUN 6 mg/dL (6-24) 12/30/19 11:08 Creatinine 0.77 mg/dL (0.67-1.17) 12/30/19 11:08 Calcium 9.5 mg/dL (8.6-10.3) 12/30/19 11:08 AST 36 U/L (13-39) 12/30/19 11:08 ALT 53 U/L (7-52) H 12/30/19 11:08 Vital Signs Temp Pulse Resp BP Pulse Ox 98.7 F 79 17 142/61 100 01/07/20 08:50 01/07/20 08:50 01/07/20 08:50 01/07/20 08:50 01/07/20 08:50 Merits Inpatient Hospitalization: No Clear for Discharge: Adequate Clinical Respons Discharge Planning - Discharge Planning Discharge Plan: Outpatient Follow Up Outpatient Program: [facility] Recommendations for Continuing Care: Medication Management, Primary Care Followup Medications: Current Medications Acetaminophen (Tylenol Tab*) 650 mg PO Q4H PRN PRN Reason: for pain; or Temp >101 F Last Admin: 01/04/20 19:42 Dose: 650 mg Al Hydrox/Mg Hydrox/Simethicone (Maalox Plus*) 30 ml PO Q4H PRN PRN Reason: INDIGESTION Last Admin: 12/29/19 00:20 Dose: 30 ml Diazepam (Valium Tab(*)) 10 mg PO Q12H PRN PRN Reason: AGITATION [place] Carbonate ([place] Carbonate Tab*) 600 mg PO BID DARRIN Last Admin: 01/07/20 08:35 Dose: 600 mg Paliperidone Palmitate (Invega Sustenna*) 156 mg IM ONCE ONE Stop: 01/07/20 09:01 Discharge Planning: Prescriptions provided for discharge [] Yes [x] No Follow up care details as per social work arrangements. Patient response to discharge plan: [x] eager for discharge [] agreeable with discharge plan [] ambivalent about discharge [] disagrees with discharge today
[2020-01-07 08:51] VITALS: BP 142/61
[2020-01-07] MEDS ORDERED: Paliperidone SUSTENNA* 156 MG/1 ML IM ONE ×3 (09:00)
== END 2020-01-07 13:05 | disposition home or self-care (01) | DRG 885 ==
LOC: BSU 16:40 → UNDOADMIN 16:40 → BSU 17:15
PROVIDERS: ADMIT Psychiatry & Neurology Psychiatry; ATTEND Psychiatry & Neurology Psychiatry
DX: F31.10 Bipolar disorder, current episode manic without psychotic features, unspecified (principal); M62.82 Rhabdomyolysis; R50.9 Fever, unspecified; R74.0 Nonspecific elevation of levels of transaminase and lactic acid dehydrogenase [LDH]; I10 Essential (primary) hypertension; R00.0 Tachycardia, unspecified; F12.10 Cannabis abuse, uncomplicated; Z81.1 Family history of alcohol abuse and dependence; Z81.8 Family history of other mental and behavioral disorders
CPT/HCPCS: 36415; 80053; 80178; 82550; 85025; 90853; 99231; 99233; 99238; A9270-GY

== ENCOUNTER 2022-08-28 23:09 | Inpatient (IN) ==
[2022-08-28] MEDS ORDERED: Lactated Ringers 1000 ml BAG 1,000 ML IV ONE (23:40)
[2022-08-28] MEDS ORDERED: Droperidol 5 MG/2 ML 2 ML VIAL IV ONE (23:53)
[2022-08-29] MEDS: Midazolam 10 mg/10 ml VIAL 1 mg/ml 10 ml VIAL (10 mg) IV SLOW PU ONE ×2 (00:05→00:37)
[2022-08-29 01:05] LABS: ABS Lymphocytes 1.3 10^3/ul (1.0-4.8); ABS Monocytes 0.6 10^3/ul (0-0.8); ABS Neutrophils 6.8 10^3/ul (1.5-7.7); Eosinophil % 0.3 %; Hematocrit 40 % (42-52); Hemoglobin 13.9 g/dL (14.0-18.0); Lymphocyte % 14.7 %; Mean Corpuscular HGB Conc 35 g/dL (31-36); Mean Corpuscular Hemoglobin 32 pg (27-31); Mean Corpuscular Volume 91 fL (80-94); Mean Platelet Volume 7.2 fL (7.4-10.4); Platelet Count 242 10^3/uL (150-450); Red Blood Count 4.42 10^6 /uL (4.18-5.48); Red Cell Distribution Width 14 % (10-15); Venous Bicarbonate HCO3 22.3 mmol/L (24-28); White Blood Count 8.7 10^3/uL (3.5-10.8)
[2022-08-29 01:46] LABS: ALT 49 U/L (7-52); AST 44 U/L (13-39); Acetaminophen < 15 mcg/mL; Albumin/Globulin Ratio 1.7 (1-3); Alcohol, S < 13 mg/dL (<13); Alkaline Phosphatase 106 U/L (35-149); Anion Gap 9 mmol/L (2-11); Blood Urea Nitrogen 12 mg/dL (6-24); CO2 Carbon Dioxide 22 mmol/L (22-32); Calcium 8.5 mg/dL (8.6-10.3); Chloride 105 mmol/L (101-111); Globulin 2.3 g/dL (2-4); Glucose 88 mg/dL (70-100); Potassium 3.4 mmol/L (3.5-5.0); Salicylate < 2.50 mg/dL (<30); Sodium 136 mmol/L (135-145); Total Protein 6.3 g/dL (6.4-8.9); eGFR CKD-EPI 128.4 (>60)
[2022-08-29] MEDS ORDERED: NS 0.9% 1000 ml BAG 1,000 ML IV ONE (01:48)
[2022-08-29] MEDS ORDERED: diazePAM INJ CARPUJECT 5 MG/ML SYRINGE IV ONE ×2 (01:50→05:26)
[2022-08-29 02:01] LABS: TSH Ultra Thyroid Stim Horm 0.37 mcIU/mL (0.34-5.60)
[2022-08-29 02:06] LABS: Creatine Kinase 2415 U/L (10-223)
[2022-08-29] MEDS ORDERED: Lactated Ringers 1000 ml BAG 1,000 ML IV ONE (05:27)
[2022-08-29 06:31] LABS: Urine Benzodiazepine Screen Presumptive Positive (None Detect); Urine Cannabinoids Screen Presumptive Positive (None Detect); Urine Opiates Screen None Detected (None Detect)
[2022-08-29 07:47] LABS: Urine Appearance Clear; Urine Bilirubin Negative (Negative); Urine Blood Negative (Negative); Urine Color Yellow; Urine Glucose Negative (Negative); Urine Ketones 1+ (15mg/dL) (Negative); Urine Nitrite Negative (Negative); Urine Protein Trace (Negative); Urine Specific Gravity 1.025 (1.002-1.030); Urine Urobilinogen 0.2 (Negative) (Negative); Urine pH 5.5 (5.0-9.0)
[2022-08-29 07:48] LABS: Urine Bacteria Absent (Absent); Urine Granular Casts Present (Absent); Urine Red Blood Cell Absent (Absent); Urine White Blood Cell Absent (Absent)
[2022-08-29] MEDS ORDERED: Droperidol 5 MG/2 ML 2 ML VIAL IV ONE (08:59)
[2022-08-29] MEDS ORDERED: Droperidol 5 MG/2 ML 2 ML VIAL IM ONE (09:01)
[2022-08-30] MEDS ORDERED: OLANZapine 10 mg TAB*ODT PO ONE (02:30)
[2022-08-30 08:15] LABS: HDL Cholesterol 54.4 mg/dL
[2022-08-30] MEDS ORDERED: Paliperidone SUSTENNA 234 MG/1.5 ML IM ONE (10:14)
[2022-08-30] MEDS: OLANZapine 10 mg TAB*ODT PO PRN ×2 (13:30→23:11)
[2022-08-30] MEDS ORDERED: chlorproMAZINE 25 MG/ML 2 ML (50 MG) ONE (13:37)
[2022-08-31] MEDS ORDERED: OLANZapine 10 mg TAB*ODT PO ONE
[2022-08-31] MEDS: OLANZapine 10 mg TAB*ODT PO PRN (00:10)
[2022-09-01] MEDS: OLANZapine 10 mg TAB*ODT PO PRN (02:55)
[2022-09-01] MEDS ORDERED: chlorproMAZINE 25 MG/ML 2 ML (50 MG) IM ONE (03:15)
[2022-09-01] MEDS ORDERED: chlorproMAZINE 25 MG/ML 2 ML (50 MG) ONE (03:17)
[2022-09-01] MEDS ORDERED: diazePAM INJ CARPUJECT 5 MG/ML SYRINGE ONE (18:15)
[2022-09-01] MEDS ORDERED: diazePAM INJ CARPUJECT 5 MG/ML SYRINGE IM ONE (20:00)
[2022-09-02] MEDS: OLANZapine 10 mg TAB*ODT PO PRN (07:41)
[2022-09-02 08:03] LABS: ABS Basophils 0.1 10^3/ul (0-0.2); ABS Eosinophils 0.1 10^3/ul (0-0.6); ABS Lymphocytes 1.4 10^3/ul (1.0-4.8); ABS Monocytes 0.6 10^3/ul (0-0.8); ABS Neutrophils 5.2 10^3/ul (1.5-7.7); Eosinophil % 1.5 %; Hematocrit 45 % (42-52); Hemoglobin 15.6 g/dL (14.0-18.0); Lymphocyte % 18.8 %; Mean Corpuscular HGB Conc 35 g/dL (31-36); Mean Corpuscular Hemoglobin 32 pg (27-31); Mean Corpuscular Volume 91 fL (80-94); Mean Platelet Volume 7.1 fL (7.4-10.4); Nucleated Red Blood Cells % 0.1; Platelet Count 264 10^3/uL (150-450); Red Blood Count 4.91 10^6 /uL (4.18-5.48); Red Cell Distribution Width 14 % (10-15); White Blood Count 7.4 10^3/uL (3.5-10.8)
[2022-09-02 08:49] LABS: Albumin 4.8 g/dL (3.2-5.2); Albumin/Globulin Ratio 1.8 (1-3); Calcium 9.8 mg/dL (8.6-10.3); Globulin 2.6 g/dL (2-4); Potassium 4.7 mmol/L (3.5-5.0); Total Bilirubin 0.9 mg/dL (0.2-1.0); Total Protein 7.4 g/dL (6.4-8.9); eGFR CKD-EPI 118.4 (>60)
[2022-09-02] MEDS ORDERED: Paliperidone SUSTENNA 156 MG/1 ML IM ONE (13:37)
[2022-09-03] MEDS: Amoxicillin/Clavul 500/125 TAB (Augmentin 500 mg tab) PO SCH (20:07)
[2022-09-04] MEDS: OLANZapine 10 mg TAB*ODT PO PRN ×2 (03:36→10:39)
[2022-09-04] MEDS: Amoxicillin/Clavul 500/125 TAB (Augmentin 500 mg tab) PO SCH ×2 (09:54→23:31)
[2022-09-04 12:07] LABS: Albumin 4.5 g/dL (3.2-5.2); Albumin/Globulin Ratio 1.9 (1-3); Calcium 9.3 mg/dL (8.6-10.3); Globulin 2.4 g/dL (2-4); Potassium 4.2 mmol/L (3.5-5.0); Total Bilirubin 0.6 mg/dL (0.2-1.0); Total Protein 6.9 g/dL (6.4-8.9); eGFR CKD-EPI 116.9 (>60)
[2022-09-04] MEDS: NS 0.9% 1000 ml BAG 1,000 ML IV SCH ×2 (17:10→19:54)
[2022-09-05] MEDS: OLANZapine 10 mg TAB*ODT PO PRN ×2 (03:37→18:47)
[2022-09-05 08:04] LABS: Albumin 4.5 g/dL (3.2-5.2); Albumin/Globulin Ratio 1.8 (1-3); Calcium 9.6 mg/dL (8.6-10.3); Globulin 2.5 g/dL (2-4); Potassium 4.2 mmol/L (3.5-5.0); Total Bilirubin 0.5 mg/dL (0.2-1.0); eGFR CKD-EPI 123.7 (>60)
[2022-09-05 12:28] LABS: Hepatitis B Surface Antigen Nonreactive (Nonreactive)
[2022-09-05 12:45] LABS: Hepatitis C Antibody Negative (Negative)
[2022-09-05] MEDS: Amoxicillin/Clavul 500/125 TAB (Augmentin 500 mg tab) PO SCH ×2 (14:11→23:02)
[2022-09-05 16:20] LABS: Hepatitis B Surface Ab Indeterminate (Immune)
[2022-09-05] MEDS: NS 0.9% 1000 ml BAG 1,000 ML IV SCH ×2 (21:03→23:53)
[2022-09-06] MEDS ORDERED: NS 0.9% 1000 ml BAG 1,000 ML IV SCH
[2022-09-06 07:32] LABS: Albumin 4.3 g/dL (3.2-5.2); Calcium 9.3 mg/dL (8.6-10.3); Globulin 2.2 g/dL (2-4); Potassium 4.2 mmol/L (3.5-5.0); Total Bilirubin 0.5 mg/dL (0.2-1.0); Total Protein 6.5 g/dL (6.4-8.9); eGFR CKD-EPI 126.9 (>60)
[2022-09-06] MEDS ORDERED: NS 0.9% 1000 ml BAG 1,000 ML IV ONE (08:11)
[2022-09-06] MEDS ORDERED: OLANZapine 5 mg TAB *ODT PO PRN (08:42)
[2022-09-06] MEDS: Amoxicillin/Clavul 500/125 TAB (Augmentin 500 mg tab) PO SCH ×2 (11:56→21:17)
[2022-09-06 19:58] LABS: Albumin 4.6 g/dL (3.2-5.2); Albumin/Globulin Ratio 1.8 (1-3); Calcium 9.5 mg/dL (8.6-10.3); Globulin 2.5 g/dL (2-4); Potassium 3.9 mmol/L (3.5-5.0); Total Bilirubin 0.6 mg/dL (0.2-1.0); Total Protein 7.1 g/dL (6.4-8.9); eGFR CKD-EPI 127.9 (>60)
[2022-09-07 08:11] LABS: Albumin 4.3 g/dL (3.2-5.2); Calcium 9.6 mg/dL (8.6-10.3); Globulin 2.2 g/dL (2-4); Total Bilirubin 0.5 mg/dL (0.2-1.0); Total Protein 6.5 g/dL (6.4-8.9); eGFR CKD-EPI 126.4 (>60)
[2022-09-07] MEDS: Amoxicillin/Clavul 500/125 TAB (Augmentin 500 mg tab) PO SCH ×2 (09:18→21:48)
[2022-09-07] MEDS ORDERED: NS 0.9% 1000 ml BAG 1,000 ML IV ONE (18:38)
[2022-09-08] MEDS: Al Hydrox/Mg Hydrox/Simet LIQ 30 ML UDC PO PRN (03:30)
[2022-09-08] MEDS: Amoxicillin/Clavul 500/125 TAB (Augmentin 500 mg tab) PO SCH ×2 (09:32→20:05)
[2022-09-08 18:46] LABS: Albumin 4.5 g/dL (3.2-5.2); Albumin/Globulin Ratio 1.7 (1-3); Calcium 9.5 mg/dL (8.6-10.3); Globulin 2.7 g/dL (2-4); Potassium 4.2 mmol/L (3.5-5.0); Total Bilirubin 0.6 mg/dL (0.2-1.0); Total Protein 7.2 g/dL (6.4-8.9); eGFR CKD-EPI 126.9 (>60)
[2022-09-08] MEDS: OLANZapine 5 mg TAB *ODT PO PRN (22:53)
[2022-09-09] MEDS: OLANZapine 5 mg TAB *ODT PO PRN (03:55)
[2022-09-09] MEDS: Al Hydrox/Mg Hydrox/Simet LIQ 30 ML UDC PO PRN (06:25)
[2022-09-09] MEDS ORDERED: Lactase Enzyme (NF) 3,000 UNIT TAB PO PRN (07:35)
[2022-09-09] MEDS ORDERED: NS 0.9% 1000 ml BAG 1,000 ML IV ONE (07:40)
[2022-09-09] MEDS: Amoxicillin/Clavul 500/125 TAB (Augmentin 500 mg tab) PO SCH ×2 (08:01→21:28)
[2022-09-09] MEDS ORDERED: OLANZapine 5 mg TAB *ODT PO PRN (08:26)
[2022-09-10] MEDS: Al Hydrox/Mg Hydrox/Simet LIQ 30 ML UDC PO PRN (03:39)
[2022-09-10] MEDS: Amoxicillin/Clavul 500/125 TAB (Augmentin 500 mg tab) PO SCH ×2 (07:11→07:16)
[2022-09-11] MEDS: Al Hydrox/Mg Hydrox/Simet LIQ 30 ML UDC PO PRN (00:14)
[2022-09-11] MEDS: Lactase Enzyme (NF) 3,000 UNIT TAB PO PRN (00:19)
[2022-09-11 08:38] LABS: Lithium 0.62 mmol/L (0.6-1.2)
[2022-09-11] MEDS: Amoxicillin/Clavul 500/125 TAB (Augmentin 500 mg tab) PO SCH ×2 (15:45→20:59)
[2022-09-11] MEDS ORDERED: Benzocaine (DENTAL) 10% TOP.GEL TOPICAL PRN (22:10)
[2022-09-12 07:20] LABS: ABS Basophils 0.1 10^3/ul (0-0.2); ABS Eosinophils 0.2 10^3/ul (0-0.6); ABS Lymphocytes 1.8 10^3/ul (1.0-4.8); ABS Monocytes 0.5 10^3/ul (0-0.8); Hematocrit 39 % (42-52); Hemoglobin 14.1 g/dL (14.0-18.0); Mean Corpuscular HGB Conc 36 g/dL (31-36); Mean Corpuscular Hemoglobin 32 pg (27-31); Mean Corpuscular Volume 88 fL (80-94); Mean Platelet Volume 6.2 fL (7.4-10.4); Platelet Count 307 10^3/uL (150-450); Red Blood Count 4.44 10^6 /uL (4.18-5.48); Red Cell Distribution Width 14 % (10-15); White Blood Count 9.7 10^3/uL (3.5-10.8)
[2022-09-12] MEDS: Amoxicillin/Clavul 500/125 TAB (Augmentin 500 mg tab) PO SCH ×2 (07:29→21:12)
[2022-09-12 08:13] LABS: Albumin 4.2 g/dL (3.2-5.2); Albumin/Globulin Ratio 1.9 (1-3); Calcium 9.4 mg/dL (8.6-10.3); Globulin 2.2 g/dL (2-4); Total Bilirubin 0.5 mg/dL (0.2-1.0); Total Protein 6.4 g/dL (6.4-8.9); eGFR CKD-EPI 126.4 (>60)
[2022-09-12] MEDS: Lactase Enzyme (NF) 3,000 UNIT TAB PO PRN ×2 (21:17→23:56)
[2022-09-12] MEDS: Carbamide Peroxide 6.5% OTIC 15 ML BTL BOTH EARS SCH (21:20)
[2022-09-13] MEDS: Carbamide Peroxide 6.5% OTIC 15 ML BTL BOTH EARS SCH ×3 (06:50→20:10)
[2022-09-13] MEDS: Amoxicillin/Clavul 500/125 TAB (Augmentin 500 mg tab) PO SCH ×2 (08:08→20:11)
[2022-09-13] MEDS: Lactase Enzyme (NF) 3,000 UNIT TAB PO PRN (23:26)
[2022-09-14] MEDS: Carbamide Peroxide 6.5% OTIC 15 ML BTL BOTH EARS SCH ×2 (13:33→20:19)
[2022-09-14] MEDS: Al Hydrox/Mg Hydrox/Simet LIQ 30 ML UDC PO PRN (21:31)
[2022-09-15] MEDS: Lactase Enzyme (NF) 3,000 UNIT TAB PO PRN (04:27)
[2022-09-15 08:41] VITALS: BP 145/85
[2022-09-15 09:15] LABS: Lithium 0.76 mmol/L (0.6-1.2)
[2022-09-15] MEDS: Carbamide Peroxide 6.5% OTIC 15 ML BTL BOTH EARS SCH (10:05)
== END 2022-09-15 11:08 | disposition home or self-care (01) | DRG 885 ==
LOC: ED 23:09 → EDHOLD 08-29 08:47 → BSU 08-29 11:05
PROVIDERS: ADMIT Psychiatry & Neurology Psychiatry; ATTEND Psychiatry & Neurology Psychiatry

== ENCOUNTER 2022-09-19 23:52 | Inpatient (IN) ==
[2022-09-20 01:00] LABS: ABS Eosinophils 0.1 10^3/ul (0-0.6); ABS Lymphocytes 1.6 10^3/ul (1.0-4.8); ABS Monocytes 0.7 10^3/ul (0-0.8); ABS Neutrophils 9.9 10^3/ul (1.5-7.7); Eosinophil % 0.7 %; Hematocrit 44 % (42-52); Lymphocyte % 12.6 %; Mean Corpuscular HGB Conc 34 g/dL (31-36); Mean Corpuscular Hemoglobin 31 pg (27-31); Mean Corpuscular Volume 92 fL (80-94); Mean Platelet Volume 6.6 fL (7.4-10.4); Platelet Count 286 10^3/uL (150-450); Red Blood Count 4.79 10^6 /uL (4.18-5.48); Red Cell Distribution Width 14 % (10-15); White Blood Count 12.3 10^3/uL (3.5-10.8)
[2022-09-20 01:01] LABS: Urine Appearance Clear; Urine Bilirubin Negative (Negative); Urine Blood Negative (Negative); Urine Color Yellow; Urine Glucose Negative (Negative); Urine Ketones Negative (Negative); Urine Nitrite Negative (Negative); Urine Protein Negative (Negative); Urine Specific Gravity 1.015 (1.002-1.030); Urine Urobilinogen Negative (Negative)
[2022-09-20 01:15] LABS: Urine Benzodiazepine Screen None Detected (None Detect); Urine Cannabinoids Screen Presumptive Positive (None Detect); Urine Opiates Screen None Detected (None Detect)
[2022-09-20 01:46] LABS: Albumin 4.4 g/dL (3.2-5.2); Anion Gap 8 mmol/L (2-11); CO2 Carbon Dioxide 30 mmol/L (22-32); Calcium 9.7 mg/dL (8.6-10.3); Chloride 100 mmol/L (101-111); Lithium 0.91 mmol/L (0.6-1.2); Potassium 3.8 mmol/L (3.5-5.0); Sodium 138 mmol/L (135-145)
[2022-09-20 01:53] LABS: ALT 93 U/L (7-52); AST 50 U/L (13-39); Acetaminophen < 15 mcg/mL; Albumin/Globulin Ratio 1.7 (1-3); Alcohol, S < 13 mg/dL (<13); Alkaline Phosphatase 113 U/L (35-149); Blood Urea Nitrogen 11 mg/dL (6-24); Creatine Kinase 1187 U/L (10-223); Globulin 2.6 g/dL (2-4); Glucose 102 mg/dL (70-100); Salicylate < 2.50 mg/dL (<30); eGFR CKD-EPI 126.9 (>60)
[2022-09-20 02:14] LABS: TSH Ultra Thyroid Stim Horm 1.64 mcIU/mL (0.34-5.60)
[2022-09-20] MEDS: Vitamin THERAPEUTIC TAB PO SCH (11:09)
[2022-09-20 13:37] LABS: C Reactive Protein 1.78 mg/L (<8.01)
[2022-09-20] MEDS: Amoxicillin/Clavul 875/125 TAB (Augmentin 875 tab) PO SCH (19:15)
[2022-09-20] MEDS: Carbamide Peroxide 6.5% OTIC 15 ML BTL BOTH EARS SCH (19:21)
[2022-09-20] MEDS: Lithium Carbonate ER 450mg TAB PO SCH (20:12)
[2022-09-20 22:08] LABS: Urine Benzodiazepine Screen None Detected (None Detect); Urine Cannabinoids Screen Presumptive Positive (None Detect); Urine Opiates Screen None Detected (None Detect)
[2022-09-20 22:37] LABS: Urine Buprenorphine Screen None Detected (None Detect); Urine Fentanyl Screen None Detected (None Detect); Urine Hydrocodone Screen None Detected (None Detect)
[2022-09-21] MEDS: Amoxicillin/Clavul 875/125 TAB (Augmentin 875 tab) PO SCH ×2 (10:43→20:38)
[2022-09-21] MEDS: Carbamide Peroxide 6.5% OTIC 15 ML BTL BOTH EARS SCH ×2 (10:44→20:38)
[2022-09-21] MEDS: Vitamin THERAPEUTIC TAB PO SCH (10:59)
[2022-09-21] MEDS: Lithium Carbonate ER 450mg TAB PO SCH (20:38)
[2022-09-22] MEDS: Amoxicillin/Clavul 875/125 TAB (Augmentin 875 tab) PO SCH ×2 (10:52→19:57)
[2022-09-22] MEDS: Vitamin THERAPEUTIC TAB PO SCH (10:54)
[2022-09-22] MEDS: Carbamide Peroxide 6.5% OTIC 15 ML BTL BOTH EARS SCH ×2 (10:54→19:57)
[2022-09-22] MEDS: Lithium Carbonate ER 450mg TAB PO SCH (19:58)
[2022-09-22] MEDS: Al Hydrox/Mg Hydrox/Simet LIQ 30 ML UDC PO PRN (22:26)
[2022-09-23] MEDS: Amoxicillin/Clavul 875/125 TAB (Augmentin 875 tab) PO SCH (10:40)
[2022-09-23] MEDS: Vitamin THERAPEUTIC TAB PO SCH (10:41)
[2022-09-23] MEDS: Carbamide Peroxide 6.5% OTIC 15 ML BTL BOTH EARS SCH (10:46)
[2022-09-23 10:47] VITALS: BP 120/68
[2022-09-23] MEDS: Al Hydrox/Mg Hydrox/Simet LIQ 30 ML UDC PO PRN (12:03)
[2022-09-23] MEDS: Paliperidone SUSTENNA 234 MG/1.5 ML IM ONE ×2 (12:42→14:05)
== END 2022-09-23 14:15 | disposition home or self-care (01) | DRG 885 ==
LOC: ED 23:52 → EDHOLD 09-20 04:20 → BSU 09-20 09:20
PROVIDERS: ADMIT Psychiatry & Neurology Psychiatry; ATTEND Psychiatry & Neurology Psychiatry

== ENCOUNTER 2022-11-08 13:53 | Inpatient (IN) ==
[2022-11-08 14:50] LABS: ABS Lymphocytes 1.4 10^3/ul (1.0-4.8); ABS Monocytes 0.4 10^3/ul (0-0.8); Eosinophil % 0.1 %; Hematocrit 44 % (42-52); Hemoglobin 14.8 g/dL (14.0-18.0); Lymphocyte % 14.1 %; Mean Corpuscular HGB Conc 34 g/dL (31-36); Mean Corpuscular Hemoglobin 31 pg (27-31); Mean Corpuscular Volume 92 fL (80-94); Mean Platelet Volume 7.3 fL (7.4-10.4); Nucleated Red Blood Cells % 0.1; Platelet Count 224 10^3/uL (150-450); Red Cell Distribution Width 14 % (10-15); White Blood Count 9.9 10^3/uL (3.5-10.8)
[2022-11-08 15:36] LABS: ALT 23 U/L (7-52); AST 19 U/L (13-39); Albumin 4.8 g/dL (3.2-5.2); Albumin/Globulin Ratio 1.7 (1-3); Alcohol, S < 13 mg/dL (<13); Alkaline Phosphatase 138 U/L (35-149); Anion Gap 9 mmol/L (2-11); Blood Urea Nitrogen 9 mg/dL (6-24); CO2 Carbon Dioxide 24 mmol/L (22-32); Calcium 9.7 mg/dL (8.6-10.3); Chloride 104 mmol/L (101-111); Creatinine, Serum 0.76 mg/dL (0.67-1.17); Globulin 2.8 g/dL (2-4); Glucose 131 mg/dL (70-100); Potassium 3.5 mmol/L (3.5-5.0); Salicylate < 2.50 mg/dL (<30); Sodium 137 mmol/L (135-145); Total Protein 7.6 g/dL (6.4-8.9); eGFR CKD-EPI 127.9 (>60)
[2022-11-08 15:38] LABS: Acetaminophen < 15 mcg/mL
[2022-11-08 15:40] LABS: TSH Ultra Thyroid Stim Horm 0.51 mcIU/mL (0.34-5.60)
[2022-11-08 15:46] LABS: Urine Benzodiazepine Screen None Detected (None Detect); Urine Cannabinoids Screen Presumptive Positive (None Detect); Urine Opiates Screen None Detected (None Detect)
[2022-11-08] MEDS ORDERED: NF: Cariprazine 3 mg CAP (NF) PO SCH (21:00)
[2022-11-08] MEDS ORDERED: Al Hydrox/Mg Hydrox/Simet LIQ 30 ML UDC PO PRN (21:40)
[2022-11-08] MEDS ORDERED: Nicotine GUM 2MG FRUIT FLAVOR PO PRN (22:00)
[2022-11-09] MEDS: Vitamin THERAPEUTIC TAB PO SCH (11:38)
[2022-11-09] MEDS: Nicotine PATCH 14 MG/24 HR PATCH TRANSDERM SCH (11:38)
[2022-11-09] MEDS: CMCS:Lactase Enzyme (NF) 3,000 UNIT TAB PO SCH ×2 (12:29→17:34)
[2022-11-09] MEDS ORDERED: CARIPRAZINE 1.5 MG PO SCH (21:00)
[2022-11-10] MEDS: CMCS:Lactase Enzyme (NF) 3,000 UNIT TAB PO SCH ×3 (07:49→18:22)
[2022-11-10] MEDS: Vitamin THERAPEUTIC TAB PO SCH (11:33)
[2022-11-10] MEDS: Nicotine PATCH 14 MG/24 HR PATCH TRANSDERM SCH (11:33)
[2022-11-11] MEDS: Nicotine PATCH 14 MG/24 HR PATCH TRANSDERM SCH (09:22)
[2022-11-11] MEDS: CMCS:Lactase Enzyme (NF) 3,000 UNIT TAB PO SCH ×3 (09:22→15:48)
[2022-11-11] MEDS: Vitamin THERAPEUTIC TAB PO SCH (09:22)
[2022-11-12] MEDS: Vitamin THERAPEUTIC TAB PO SCH (08:45)
[2022-11-12] MEDS: CMCS:Lactase Enzyme (NF) 3,000 UNIT TAB PO SCH ×3 (08:46→18:15)
[2022-11-12] MEDS: Nicotine PATCH 14 MG/24 HR PATCH TRANSDERM SCH (09:10)
[2022-11-13] MEDS: Vitamin THERAPEUTIC TAB PO SCH (08:35)
[2022-11-13] MEDS: CMCS:Lactase Enzyme (NF) 3,000 UNIT TAB PO SCH ×3 (08:36→17:06)
[2022-11-13] MEDS: Nicotine PATCH 14 MG/24 HR PATCH TRANSDERM SCH (08:39)
[2022-11-14] MEDS: CMCS:Lactase Enzyme (NF) 3,000 UNIT TAB PO SCH ×2 (09:04→11:49)
[2022-11-14] MEDS: Vitamin THERAPEUTIC TAB PO SCH (09:04)
[2022-11-14] MEDS: Nicotine PATCH 14 MG/24 HR PATCH TRANSDERM SCH ×2 (09:04→10:36)
[2022-11-14 09:16] VITALS: BP 139/74
== END 2022-11-14 14:01 | disposition home or self-care (01) | DRG 885 ==
LOC: ED 13:53 → EDHOLD 17:33 → BSU 19:36
PROVIDERS: ADMIT Student in an Organized Health Care Education/Training Program; ATTEND Student in an Organized Health Care Education/Training Program

== ENCOUNTER 2024-01-03 00:19 | Inpatient (IN) ==
[2024-01-03 01:31] LABS: ABS Lymphocytes 0.8 10^3/uL (1.0-4.8); ABS Monocytes 0.9 10^3/uL (0.0-1.1); ABS Neutrophils 9.4 10^3/uL (1.5-7.6); Eosinophil % 0.2 %; Hemoglobin 14.1 g/dL (13.2-16.3); Mean Corpuscular Hgb Conc 34.2 g/dL (31-36); Mean Corpuscular Volume 90.5 fL (80-97); Mean Platelet Volume 6.8 fL (7.5-11.2); Platelet Count 322 10^3/uL (150-450); Red Blood Count 4.54 10^6/uL (4.06-5.63); Red Cell Distribution Width 13.9 % (12-17)
[2024-01-03] MEDS: cefTRIAXone 1 gm/50 mL D5W 1 GM/50 ML BAG IV ONE (01:32)
[2024-01-03] MEDS: Lactated Ringers SEPSIS* BAG 2,330 ML IV ONE (01:32)
[2024-01-03 01:44] LABS: INR 1.23 (0.83-1.13)
[2024-01-03 01:44] LABS: Urine Appearance Clear; Urine Bilirubin Negative (Negative); Urine Blood 2+ (Negative); Urine Color Yellow; Urine Glucose Negative (Negative); Urine Ketones Trace (Negative); Urine Nitrite Negative (Negative); Urine Protein 2+ (>=100 mg/dL) (Negative); Urine Urobilinogen 2+ (Negative)
[2024-01-03 01:49] LABS: Urine Bacteria Absent /HPF (Absent); Urine Red Blood Cell Trace(0-2/hpf) /HPF (0-Trace); Urine Squamous Epithelial Cell Present /HPF (Absent); Urine White Blood Cell Trace(0-5/hpf) /HPF (0-Trace)
[2024-01-03] MEDS: Azithromycin 500 mg/250 ml NS 500 MG/250 ML BAG IVPB ONE (01:53)
[2024-01-03 01:59] LABS: Albumin 4.2 g/dL (3.2-5.2); Albumin/Globulin Ratio 1.4 (1-3); C Reactive Protein 299.81 mg/L (<8.01); Creatinine, Serum 0.99 mg/dL (0.67-1.17); Potassium 3.8 mmol/L (3.5-5.0); Total Bilirubin 0.8 mg/dL (0.2-1.0); Total Protein 7.2 g/dL (6.4-8.9); eGFR CKD-EPI 107.7 (>60)
[2024-01-03] MEDS ORDERED: Albuterol/Ipratropium NEB.SOL (2.5/0.5 MG) 3 ML NEB.SOLN INH PRN (02:42)
[2024-01-03 02:51] LABS: High Sensitivity Troponin 1 Hr 10 pg/mL (<20)
[2024-01-03] MEDS ORDERED: Vancomycin 1,000 MG BAG/ADDV ONE (02:59)
[2024-01-03] MEDS ORDERED: Vancomycin per Pharmacy 1 EA NOTE FOLLOW UP SCH (03:00)
[2024-01-03] MEDS: Vancomycin 1,000 MG in NS 0.9% 250 ml 250 ML IVPB ONE (03:16)
[2024-01-03] MEDS: Cefepime 2 GM in Dextrose 2 GM/50 ML BAG IV SCH ×2 (04:58→18:00)
[2024-01-03] MEDS: Vancomycin 1,750 MG in NS 0.9% 500 ml BAG 500 ML IVPB SCH ×2 (09:58→21:09)
[2024-01-03] MEDS: Lactated Ringers 1000 ml BAG 1,000 ML IV ONE (11:55)
[2024-01-03] MEDS: DOXYcycline 100 MG in NS 0.9% 250 ml 250 ML IVPB SCH (14:30)
[2024-01-03] MEDS ORDERED: Ondansetron ODT 4 mg TAB 4 MG TAB SL PRN (21:27)
[2024-01-03] MEDS: NS 0.9% 1000 ml BAG 1,000 ML IV ONE (21:33)
[2024-01-03] MEDS: guaiFENesin 100 mg/5 ml LIQ unit dose cup PO PRN (22:48)
[2024-01-04 08:52] LABS: ABS Lymphocytes 0.7 10^3/uL (1.0-4.8); ABS Monocytes 0.3 10^3/uL (0.0-1.1); ABS Nucleated RBC 0.01 10^3/ul; Hematocrit 37.5 % (38-53); Hemoglobin 13.4 g/dL (13.2-16.3); Lymphocyte % 11.3 %; Mean Corpuscular Hemoglobin 32.2 pg (27-33); Mean Corpuscular Hgb Conc 35.9 g/dL (31-36); Mean Corpuscular Volume 89.7 fL (80-97); Mean Platelet Volume 6.3 fL (7.5-11.2); Nucleated Red Blood Cells % 0.1 %/100WBC (0.0-0.8); Platelet Count 270 10^3/uL (150-450); Red Blood Count 4.18 10^6/uL (4.06-5.63); White Blood Count 6.1 10^3/uL (3.6-10.2)
[2024-01-04] MEDS: Vancomycin Trough Check NOTE FOLLOW UP ONE (09:29)
[2024-01-04 09:31] LABS: Calcium 8.2 mg/dL (8.6-10.3); Creatinine, Serum 0.8 mg/dL (0.67-1.17); Potassium 3.8 mmol/L (3.5-5.0); eGFR CKD-EPI 125.2 (>60)
[2024-01-04] MEDS: cefTRIAXone 1 gm/50 mL D5W 1 GM/50 ML BAG IV SCH (11:37)
[2024-01-04] MEDS ORDERED: Vancomycin 2,000 MG in NS 0.9% 500 ml BAG 500 ML IVPB SCH (18:00)
[2024-01-05 07:16] LABS: Creatinine, Serum 0.84 mg/dL (0.67-1.17); eGFR CKD-EPI 123.3 (>60)
[2024-01-05] MEDS: Vancomycin 2,000 MG in NS 0.9% 500 ml BAG 500 ML IVPB SCH (09:24)
[2024-01-05 13:49] VITALS: BP 129/94
[2024-01-05 14:41] LABS: HIV 4th Generation Nonreactive (Nonreactive)
[2024-01-07] MEDS ORDERED: Vancomycin Trough Check NOTE FOLLOW UP ONE (08:30)
== END 2024-01-05 16:55 | disposition home or self-care (01) | DRG 871 ==
LOC: EDHOLD 00:19 → ED 00:19 → SUATTDRO 13:05 → MEDTELE 13:25 → MED 01-04 20:51
PROVIDERS: ADMIT Hospitalist; ATTEND Hospitalist